=== PATIENT | female | born 1960 | race Caucasian/White ===

== ENCOUNTER 2024-02-29 01:19 | Inpatient (IN) | payer BC, OTHER ==
[2024-02-29] MEDS ORDERED: ONDANSETRON 4 MG/2 ML VIAL ONE (02:34)
[2024-02-29] MEDS ORDERED: NA CHLORIDE 0.9% 1,000 ML ONE (02:35)
[2024-02-29] MEDS ORDERED: FENTANYL CITR 100 MCG/2 ML ONE (02:35)
[2024-02-29] MEDS ORDERED: PIPERACIL/TAZO 3.375 GM VIAL IV ONE (02:36)
[2024-02-29] MEDS ORDERED: NA CHLORIDE 0.9% 100 ML ONE (02:36)
[2024-02-29 02:45] LABS: Arterial Blood Carboxyhemoglob 0.9 % (0-1.5); Blood O2 Saturation 95.6 % (92-98.5)
[2024-02-29] MEDS ORDERED: ALBUTEROL 2.5 MG/3 ML NEB SOL ONE ×2 (02:58→03:22)
[2024-02-29] MEDS ORDERED: METHYLPREDNISOLONE 125 MG INJ ONE (02:58)
[2024-02-29 03:11] LABS: Hematocrit 37.6 % (36.0-45.0); Hemoglobin 12.6 g/dL (12.0-15.0); MCH 28.7 pg (27.0-35.0); MCHC 33.4 g/dL (32.0-36.0); MCV 85.9 fL (80-100); MPV 7.8 fL (7.6-11.3); Platelets 281 thou/uL (152-406); RBC Red Blood Cell Count 4.37 M/uL (3.86-4.86); Red Cell Distribution Width 14.8 % (12.1-15.2)
[2024-02-29 03:19] LABS: Albumin 2.4 g/dL (3.4-5.0); Albumin/Globulin Ratio 0.7 (1.1-1.8); Anion Gap 7.7 mEq/L (5.0-15.0); Bilirubin Indirect, Calculated 0.5 mg/dL (0.2-0.8); Bilirubin Total 2.5 mg/dL (0.2-1.0); Globulin 3.6 g/dL (2.3-3.5); Magnesium 1.6 mg/dL (1.6-2.4); Potassium 2.7 mEq/L (3.5-5.1); Troponin High Sensitivity 7.6 pg/mL (<58.9)
[2024-02-29 03:51] LABS: Band Neutrophils 19 % (0-1); Blood Morphology Comment NOT SEEN (NOT SEEN); Differential Total Cells Count 100; Lymphocytes 4 % (15-42); Metamyelocytes 1 % (0-0); Monocytes 2 % (0-10); Platelet Estimate ADEQ; Segmented Neutrophils 74 % (40-80)
[2024-02-29 04:37] LABS: Renal Epithelial <5 /HPF (None Seen); Specific Gravity 1.027 (1.005-1.030); Sqamous Epithelial <5 /HPF (None Seen); Urine Bacteria None Seen /HPF (<20); Urine Bilirubin NEGATIVE (Negative); Urine Blood 1+ (Negative); Urine Clarity Clear (Clear); Urine Color Yellow (Yellow); Urine Culture Reflex Order REFLEXED; Urine Glucose NEGATIVE (Negative); Urine Ketones NEGATIVE (Negative); Urine Micro Reflex YN NO BILL MICROSCOPIC; Urine Mucus Slight /HPF (None Seen); Urine Nitrite NEGATIVE (Negative); Urine Protein TRACE (Negative); Urine RBC <5 /HPF (None Seen); Urine Urobilinogen Normal (Normal); Urine WBC Clump Rare /HPF (None Seen)
--- NOTE | 2024-02-29 05:22 | P.HP ---
Certification for Inpatient Patient admitted to: Observation With expected LOS: <2 Midnights Patient will require the following post-hospital care: None Practitioner: I am a practitioner with admitting privileges, knowledge of patient current condition, hospital course, and medical plan of care. Services: Services provided to patient in accordance with Admission requirements found in Title 42 Section 412.3 of the Code of Federal Regulations Patient History Date of Service: 02/29/24 Reason for admission: Right flank pain History of Present Illness: 61-year-old female with history of hypertension, pulmonary fibrosis secondary to COVID, on home oxygen 3 L/min use presented because she developed onset of right flank pain. Symptoms since the last 3 days but appear to be worsening, symptoms worse with movement. She denies any dysuria. She admits to chills but denies any fever. She states she has an episode of cough 1 week ago that was treated with empirical steroids and now prednisone. Her COVID screen then was negative. She presented today because of a worsening back pain. On arrival in the ED she was afebrile, vital signs stable, laboratory workup shows elevated WBC of 18,000 with 90% bands, BMP shows potassium of 2.7, creatinine of 0.8, normal lactic acid of 1.7, liver enzymes markedly elevated, lipase 147, total bili of 2.5. CT abdomen and pelvis reviewed by me, findings of right hydronephrosis, official reading pending. Patient be admitted for presumed right hydronephrosis with pyelonephritis - Past Medical/Surgical History -: Pulmonary fibrosis -: Chronic home O2 use - Social History Smoking Status: Never smoker Smoking therapy provided: No Patient receptive to therapy: No Alcohol use: No CD- Drugs: No Caffeine use: Yes Place of Residence: Home Review of Systems General: Chills, Weakness, Malaise Musculoskeletal: Back Pain Physical Examination - Physical Exam General: Alert, In no apparent distress, Oriented x3, Cooperative HEENT: Atraumatic, Normocephalic, PERRLA Neck: 2+ carotid pulse no bruit, JVD not distended Respiratory: Clear to auscultation bilaterally, Normal air movement, Other (On home O2) Cardiovascular: Normal pulses, Regular rate/rhythm, Normal S1 S2 Gastrointestinal: Normal bowel sounds, Soft and benign, Non-distended, No ascites, No tenderness Musculoskeletal: No clubbing, No swelling Integumentary: No breakdown, No significant lesion, No tenderness/swelling Neurological: Normal speech, Normal strength at 5/5 x4 extr, Sensation intact, Cranial nerves 3-12 intact Urinary: Renee catheter, Other (Right CVA tenderness) - Studies Laboratory Data (last 24 hrs) 02/29/24 02/29/24 02:00 02:00 WBC 18.10 H Hgb 12.6 Hct 37.6 Plt Count 281 Sodium 143 Potassium 2.7 L BUN 18 Creatinine 0.89 Glucose 110 H Magnesium 1.6 Total Bilirubin 2.5 H AST 332 H ALT 202 H Alkaline Phosphatase 268 H Lipase 147 H Assessment and Plan - Problems (Diagnosis) (1) Hydronephrosis, right Current Visit: Yes Status: Acute (2) Pyelonephritis Current Visit: Yes Status: Acute (3) Elevated LFTs Current Visit: Yes Status: Acute - Plan Impression and plan Acute UTI with pyelonephritisstart empirical antibiotics with Levaquin Follow urine culture Continue started Renee Follow urology for associated right hydronephrosis Right hydronephrosisurology consult today Might need cystoscopy with right stent in, follow CT abdomen and pelvics reading Elevated LFTsunclear etiology, follow full CT reading, might need right upper abdominal ultrasound May need GI evaluation Chronic home O2 use/history of pulmonary fibrosiscontinue home O2 DVT prophylaxissubcutaneous Lovenox Full code Total time spent evaluation discussion with ER physician and review of images greater than 70 minutes - Advance Directives Does patient have a Living Will: No Does patient have a Durable POA for Healthcare: No
[2024-02-29] MEDS ORDERED: MORPHINE 2 MG/ML SYR IV PRN (05:27)
[2024-02-29] MEDS ORDERED: HYDRALAZINE HCL 20 MG/ML VIAL IV PRN (05:29)
[2024-02-29 05:40] LABS: SARS-CoV-2 Antigen CONTROL BLUE LINE VIS/BG OK; SARS-CoV-2 Antigen Rapid Res Negative (Negative)
--- NOTE | 2024-02-29 05:58 | EDPHYS ---
Physician Documentation [facility] Name: Karlene Salgado Age: 63 yrs Sex: Female : 1960 Arrival Date: 02/29/2024 Time: 01:19 Bed 5 Private MD: ED Physician Kye Navarrete HPI: 02/28 01:21 This 63 yrs old Female presents to ER via Unassigned with complaints of Back sp4 Pain, Nausea/Vomiting. 05:42 63 -year-old female with history of pulmonary fibrosis secondary to prior COVID on the sp4 lung transplant list at [facility]. Patient presents with acute generalized weakness associated with nausea vomiting and bilateral back and chest pain. . Historical: - Allergies: 01:46 Hydrocodone-Acetaminophen; rg5 - Home Meds: 01:46 Zoloft 25 mg Oral tablet [Active]; levothyroxine 100 mcg tablet [Active]; Ofev 100 mg rg5 oral capsule [Active]; Xanax 2 mg Oral tablet [Active]; potassium chloride 10 mEq Oral Packet [Active]; Trelegy Ellipta 100-62.5-25 mcg inhalation Blister, With Inhalation Device [Active]; - Immunization history:: Adult Immunizations up to date. - Infectious Disease History:: Denies. - Social history:: Patient/guardian denies using Smoking status: Patient denies any tobacco usage or history of. - Family history:: not pertinent. ROS: 05:42 Constitutional: Negative for fever, chills, and weight loss, positive generalized sp4 weakness, back pain, nausea or vomiting flank pain on the right side 05:42 All other systems are negative, Exam: 05:42 Constitutional: This is a well developed, well nourished patient who is awake, alert, sp4 ill-appearing but nontoxic Head/Face: Normocephalic, atraumatic. Eyes: Pupils equal round and reactive to light, extra-ocular motions intact. Lids and lashes normal. Conjunctiva and sclera are not injected. Cornea within normal limits. Periorbital areas with no swelling, redness, or edema. ENT: Nares patent. No nasal discharge, no septal abnormalities noted. Tympanic membranes are normal and external auditory canals are clear. Oropharynx with no redness, swelling, or masses, exudates, or evidence of obstruction, uvula midline. Mucous membranes moist. Neck: Trachea midline, no thyromegaly or masses palpated, and no cervical lymphadenopathy. Supple, full range of motion without nuchal rigidity, or vertebral point tenderness. Chest/axilla: Normal chest wall appearance and motion. Nontender with no deformity. No lesions are appreciated. Cardiovascular: Regular rate and rhythm with a normal S1 and S2. No gallops, murmurs, or rubs. Normal PMI, no JVD. No pulse deficits. Respiratory: Lungs have equal breath sounds bilaterally, clear to auscultation and percussion. No rales, rhonchi or wheezes noted. No increased work of breathing, no retractions or nasal flaring. Abdomen/GI: Soft, with normal bowel sounds. No distension or tympany. No guarding or rebound. No evidence of tenderness throughout. Back: No spinal tenderness. No costovertebral tenderness. Skin: Warm, dry with normal turgor. Normal color with no rashes, no lesions, and no evidence of cellulitis. MS/ Extremity: Pulses equal, no cyanosis. Neurovascular intact. Full, normal range of motion. Neuro: Awake and alert, GCS 15, oriented to person, place, time, and situation. Cranial nerves II-XII grossly intact. Motor strength 5/5 in all extremities. Sensory grossly intact. Psych: Awake, alert, with orientation to person, place and time. Behavior, mood, and affect are within normal limits 05:42 ECG was reviewed by the Attending Physician. EKG at 0 316, normal sinus rhythm at the rate of 89. Vital Signs: 01:38 BP 147 / 62; Pulse 86; Resp 18; Temp 98.5; Pulse Ox 94% on 4 lpm NC; Weight 86.18 kg; rg5 Height 5 ft. 6 in. ; Pain 8/10; 02:03 BP 147 / 62; Pulse 86; Resp 18; Temp 98.5; Pulse Ox 94% on 4 lpm NC; Pain 8/10; rg5 04:23 BP 104 / 52; Pulse 86; Resp 19; Temp 98; Pulse Ox 99% on 4 lpm NC; Pain 3/10; rg5 05:46 BP 106 / 59; Pulse 79; Resp 18; Temp 98; Pulse Ox 96% on 4 lpm NC; Pain 1/10; rg5 01:38 Body Mass Index 30.67 (86.18 kg, 167.64 cm) rg5 01:38 Pain Scale: Adult rg5 02:03 Pain Scale: Adult rg5 04:23 Pain Scale: Adult rg5 05:46 Pain Scale: Adult rg5 Asael Coma Score: 04:15 Eye Response: spontaneous(4). Motor Response: obeys commands(6). Verbal Response: rg5 oriented(5). Total: 15. 05:42 Eye Response: spontaneous(4). Motor Response: obeys commands(6). Verbal Response: sp4 oriented(5). Total: 15. MDM: 01:39 Patient medically screened. sp4 04:52 ED course: CT - CLINICAL HISTORY: CHEST PAIN This exam was performed according to our sp4 departmental dose-optimization program, which includes automated exposure control, adjustment of the mA and/or kV according to patient size and/or use of iterative reconstruction technique. FINDINGS: Vascular: Thoracic aorta is normal in course and caliber without aneurysm or dissection. Pulmonary arteries are adequately opacified without acute or chronic filling defects. Abdominal aorta is normal in course and caliber without aneurysm. Pelvic arteries are patent without aneurysm or occlusion. Chest: The heart is normal in size. There is no pericardial effusion. Intrathoracic lymph nodes are not enlarged. There is mild right hydronephrosis secondary to a distal right ureteral calculus measuring 5 mm. Central airways are patent. There is extensive scarring and mild bronchiectasis throughout both lungs. Abdomen: The liver is normal in appearance. There is no biliary dilatation. Gallbladder contains tiny layering gallstones. The pancreas and spleen are normal in appearance. Adrenal glands are normal. Left kidney is unremarkable. There is a cystic lesion involving the upper pole of the right kidney measuring 3.8 cm. This is not convincingly a simple cyst. There is no free air. There is no retroperitoneal adenopathy. Pelvis: There is no bowel obstruction. Urinary bladder is unremarkable. There is no free fluid. Appendix is normal. Hysterectomy was performed. Skeleton: There is a mild upper endplate T11 compression fracture, age indeterminate. IMPRESSION: No aortic dissection or aneurysm. No pulmonary embolus. Mildly obstructing 5 mm distal right ureteral calculus. Indeterminate right renal lesion. Recommend ultrasound. Electronically signed by: Lance Meza MD 02/29/2024 04:46 AM . 06:09 Differential diagnosis: Cholelithiasis Osteoarthritis Pyelonephritis Renal Infarction. sp4 Data reviewed: vital signs, nurses notes. Consideration of Admission/Observation Patient was admitted/placed on observation. Escalation of care including admission/observation considered. Management of patient was discussed with the following: Hospitalist: Wilmer STOCKTON . Repairer Auto Clocks: Lefty STOCKTON . ED course: Patient warrants admission secondary to severe pain associated with a right ureteral calculus. There is mildly obstructing 5 mm right ureteral calculus. . 06:09 ED course: Urology Dr. Olea consulted for evaluation in the hospital.. sp4 02/28 01:37 Order name: BMP; Complete Time: 04:51 sp4 02/28 01:37 Order name: Blood Culture Adult (2) 4 02/28 01:37 Order name: CBC with Diff; Complete Time: 04:51 sp4 02/28 01:37 Order name: CPK; Complete Time: 04:51 sp4 02/28 01:37 Order name: Hepatic Function; Complete Time: 04:51 sp4 02/28 01:37 Order name: Lipase; Complete Time: 04:51 sp4 02/28 01:37 Order name: Magnesium; Complete Time: 04:51 sp4 02/28 01:37 Order name: NT PRO-BNP; Complete Time: 04:51 sp4 02/28 01:37 Order name: PT-INR 4 02/28 01:37 Order name: Ptt, Activated 4 02/28 01:37 Order name: Troponin HS; Complete Time: 04:51 sp4 02/28 01:37 Order name: ABG; Complete Time: 04:51 sp4 02/28 01:38 Order name: CRP; Complete Time: 04:51 sp4 02/28 01:38 Order name: Urinalysis W/Microscopic; Complete Time: 04:51 sp4 02/28 01:39 Order name: Lactate w/ 2H reflex if indic.; Complete Time: 04:51 sp4 02/28 03:15 Order name: Manual Differential; Complete Time: 04:51 EDMS 02/28 04:51 Order name: Urine Culture EDMS 02/28 04:51 Order name: SARS RAPID; Complete Time: 05:41 sp4 02/28 04:51 Order name: Influenza Screen (a \T\ B) sp4 02/28 05:31 Order name: CBC with Automated Diff EDMS 02/28 05:31 Order name: CBC with Automated Diff EDMS 02/28 05:31 Order name: Comprehensive Metabolic Panel EDNM 02/28 05:31 Order name: Comprehensive Metabolic Panel EDNM 02/28 05:32 Order name: Potassium EDMS 02/28 01:37 Order name: CT Chest, Abdomen, Pelvis - W/Contrast sp4 02/28 01:37 Order name: Call RT; Complete Time: 03:08 sp4 02/28 01:37 Order name: EKG; Complete Time: 01:38 sp4 02/28 05:31 Order name: CONS Physician Consult EDNM 02/28 01:37 Order name: Cardiac monitoring; Complete Time: 03:08 sp4 02/28 01:37 Order name: EKG - Nurse/Tech; Complete Time: 03:09 sp4 02/28 01:37 Order name: IV Saline Lock; Complete Time: 03:08 sp4 02/28 01:37 Order name: Labs collected and sent; Complete Time: 03:09 sp4 02/28 01:37 Order name: O2 Per Protocol; Complete Time: 03:09 sp4 02/28 01:37 Order name: O2 Sat Monitoring; Complete Time: 03:09 sp4 02/28 01:38 Order name: Renee; Complete Time: 04:07 sp4 EC:42 Rate is 89 beats/min. Rhythm is regular, Normal Sinus Rhythm. QRS [place] is Normal. [place] sp4 interval is normal. QRS interval is normal. QT interval is normal. No Q waves. T waves are Inverted in leads III, aVF, V3, V4, V5, V6. No ST changes noted. Interpreted by me. Reviewed by me. Administered Medications: 03:07 Drug: fentaNYL (PF) IVP 50 mcg IVP once Route: IVP; Site: left antecubital; rg5 04:26 Follow up: Response: No adverse reaction rg5 03:07 Drug: Ondansetron IVP 4 mg IVP once; over 2 minutes Route: IVP; Site: left antecubital; rg5 04:26 Follow up: Response: No adverse reaction rg5 03:07 Drug: NS 0.9% IV 1000 ml IV at 125 ml/hr continuous Route: IV; Rate: 125 ml/hr; Site: rg5 left antecubital; 03:08 Drug: Albuterol Inhalation 2.5 mg Inhalation every 20 minutes x3 Route: Inhalation; rg5 03:08 Drug: MethylPrednisoLONE IVP 125 mg IVP once Route: IVP; Site: left antecubital; rg5 04:27 Follow up: Response: No adverse reaction rg5 03:08 Drug: Piperacillin-Tazobactam IVPB 3.375 grams IVPB once over 60 mins; (mix in NS 100 rg5 mL) Route: IVPB; Infused Over: 60 mins; Site: left antecubital; 04:26 Follow up: Response: No adverse reaction rg5 04:27 Drug: Albuterol Inhalation 2.5 mg Inhalation every 20 minutes x3 Route: Inhalation; rg5 04:28 Drug: Albuterol Inhalation 2.5 mg Inhalation every 20 minutes x3 Route: Inhalation; rg5 04:28 Follow up: Response: No adverse reaction rg5 Disposition Summary: 02/29/24 05:57 Hospitalization Ordered Notes: Hospitalization Status: Observation sp4 Provider: Wilmer Raines sp4 [facility] sp[facility] Condition: Stable sp4 Problem: new sp4 Symptoms: have improved sp4 Bed/Room Type: Standard sp4 Room Assignment: 217(02/29/24 06:20) lg3 Diagnosis - Acute right ureteral calculus with right hydronephrosis, right flank pain, nausea sp4 vomiting, leukocytosis secondary to steroids, bronchiectasis Discharge Instructions: - Discharge Summary Sheet lg3 Forms: - SBAR form lg3 - Medication Reconciliation Form sp4 - Leadership Thank You Letter sp4 Signatures: Dispatcher [employer] Rebecca Scott RN RN lg3 Kye Navarrete MD MD sp4 Prudencio Catalan RN RN rg5 Corrections: (The following items were deleted from the chart) 01:39 01:38 BASIC METABOLIC PANEL+C.LAB.BRZ ordered. EDMS EDMS 01:39 01:38 BLOOD CULTURE*+BA.LAB.BRZ ordered. EDMS EDMS 01:39 01:38 CBC+H.LAB.BRZ ordered. EDMS EDMS 01:39 01:38 CREATINE PHOSPHOKINASE+C.LAB.BRZ ordered. EDMS EDMS 01:39 01:38 HEPATIC FUNCTION+C.LAB.BRZ ordered. EDMS EDMS 01:39 01:38 LIPASE+C.LAB.BRZ ordered. EDMS EDMS 01:39 01:38 MAGNESIUM+C.LAB.BRZ ordered. EDMS EDMS 01:39 01:38 PROBNP+C.LAB.BRZ ordered. EDMS EDMS 01:39 01:38 PROTIME (+INR)+COAG.LAB.BRZ ordered. EDMS EDMS 01:39 01:38 PTT, ACTIVATED+COAG.LAB.BRZ ordered. EDMS EDMS 01:39 01:38 Troponin High Sensitivity+C.LAB.BRZ ordered. EDMS EDMS 06:20 05:57 sp4 lg3
--- NOTE | 2024-02-29 05:58 | ER ---
Nurse's Notes [facility] Name: Karlene Salgado Age: 63 yrs Sex: Female : 1960 Arrival Date: 02/29/2024 Time: 01:19 Bed 5 Private MD: Diagnosis: Acute right ureteral calculus with right hydronephrosis, right flank pain, nausea vomiting, leukocytosis secondary to steroids, bronchiectasis Presentation: 02/28 01:38 Chief complaint: Patient states: feels sick since yesterday, has pain on right flank rg5 radiating to the back and having nausea \T\ vomiting. Coronavirus screen: Client denies travel out of the [place] in the last 14 days. Ebola Screen: Patient denies travel to an Ebola-affected area in the 21 days before illness onset. Initial Sepsis Screen: Does the patient meet any 2 criteria? No. Patient's initial sepsis screen is negative. Initial Sepsis Screen: Does the patient have a suspected source of infection? No. Patient's initial sepsis screen is negative. Risk Assessment: Do you want to hurt yourself or someone else? Patient reports no desire to harm self or others. Onset of symptoms was February 29, 2024. Care prior to arrival: Medication(s) given: zofran 4 mg, morphine 4mg. 01:38 Method Of Arrival: EMS: [facility] 5 01:38 Acuity: JEREMIAH 3 rg5 Triage Assessment: 01:46 General: Appears uncomfortable, Behavior is appropriate for age, restless. Pain: rg5 Complains of pain in abdomen Pain currently is 8 out of 10 on a pain scale. Quality of pain is described as aching, radiating. Neuro: Level of Consciousness is awake, alert, obeys commands. Cardiovascular: Capillary refill < 3 seconds. Respiratory: Reports shortness of breath at rest. GI: Abdomen is round non-distended, Pt is actively vomiting Reports nausea. : No signs and/or symptoms were reported regarding the genitourinary system. Derm: Skin is intact, Skin is dry, Skin is pink, warm \T\ dry. Musculoskeletal: Range of motion: intact in all extremities. Historical: - Allergies: 01:46 Hydrocodone-Acetaminophen; rg5 - Home Meds: 01:46 Zoloft 25 mg Oral tablet [Active]; levothyroxine 100 mcg tablet [Active]; Ofev 100 mg rg5 oral capsule [Active]; Xanax 2 mg Oral tablet [Active]; potassium chloride 10 mEq Oral Packet [Active]; Trelegy Ellipta 100-62.5-25 mcg inhalation Blister, With Inhalation Device [Active]; - Immunization history:: Adult Immunizations up to date. - Infectious Disease History:: Denies. - Social history:: Patient/guardian denies using Smoking status: Patient denies any tobacco usage or history of. - Family history:: not pertinent. Screenin:15 [facility] ED Fall Risk Assessment (Adult) History of falling in the last 3 months, rg5 including since admission No falls in past 3 months (0 pts) Confusion or Disorientation No (0 pts) Intoxicated or Sedated No (0 pts) Impaired Gait No (0 pts) Mobility Assist Device Used No (0 pt) Altered Elimination No (0 pt) Score/Fall Risk Level 0 - 2 = Low Risk. Abuse screen: Denies threats or abuse. Nutritional screening: No deficits noted. Tuberculosis screening: No symptoms or risk factors identified. Assessment: 04:15 General: Appears comfortable, Behavior is calm, cooperative, appropriate for age, rg5 quiet. Neuro: Level of Consciousness is awake, alert, obeys commands, Oriented to person, place, time, situation, Appropriate for age. Cardiovascular: Rhythm is sinus rhythm. Respiratory: Airway is patent. GI: Abd is soft and non tender X 4 quads. : No signs and/or symptoms were reported regarding the genitourinary system. Derm: Skin is intact, Skin is dry, Skin is pink, warm \T\ dry. Skin temperature is warm. Musculoskeletal: Capillary refill < 3 seconds, Range of motion: intact in all extremities. 05:50 Reassessment: Patient and/or family updated on plan of care and expected duration. Pain rg5 level reassessed. Patient is alert, oriented x 3, equal unlabored respirations, skin warm/dry/pink. Patient states feeling better. Patient states symptoms have improved. Vital Signs: 01:38 BP 147 / 62; Pulse 86; Resp 18; Temp 98.5; Pulse Ox 94% on 4 lpm NC; Weight 86.18 kg; rg5 Height 5 ft. 6 in. ; Pain 8/10; 02:03 BP 147 / 62; Pulse 86; Resp 18; Temp 98.5; Pulse Ox 94% on 4 lpm NC; Pain 8/10; rg5 04:23 BP 104 / 52; Pulse 86; Resp 19; Temp 98; Pulse Ox 99% on 4 lpm NC; Pain 3/10; rg5 05:46 BP 106 / 59; Pulse 79; Resp 18; Temp 98; Pulse Ox 96% on 4 lpm NC; Pain 1/10; rg5 01:38 Body Mass Index 30.67 (86.18 kg, 167.64 cm) rg5 01:38 Pain Scale: Adult rg5 02:03 Pain Scale: Adult rg5 04:23 Pain Scale: Adult rg5 05:46 Pain Scale: Adult rg5 Vitals: 04:15 Cardiac Rhythm Assessment Regular Sinus rhythm. rg5 Asael Coma Score: 04:15 Eye Response: spontaneous(4). Motor Response: obeys commands(6). Verbal Response: rg5 oriented(5). Total: 15. 05:42 Eye Response: spontaneous(4). Motor Response: obeys commands(6). Verbal Response: sp4 oriented(5). Total: 15. ED Course: 01:19 Patient arrived in ED. jj6 01:21 Kye Navarrete MD is Attending Physician. sp4 01:37 Prudencio Catalan, DWAYNE is Primary Nurse. rg5 01:46 Triage completed. rg5 03:37 CT Chest, Abdomen, Pelvis - W/Contrast In Process Unspecified. EDMS 04:00 Renee cath inserted, using sterile technique, 16 Fr., by mt, balloon inflated, returned rg5 clear yellow urine. Patient tolerated well. 04:07 Urinalysis W/Microscopic Sent. vk 04:15 Maintain EMS IV. Dressing intact. Good blood return noted. Site clean \T\ dry. Gauge \T\ rg 5 site: 20 g left AC. 04:15 Patient has correct armband on for positive identification. Placed in gown. Bed in low rg5 position. Call light in reach. Side rails up X2. Adult w/ patient. Provided Education on:. 05:46 Arm band placed on left wrist. rg5 05:57 Wilmer Raines MD is Hospitalizing Provider. sp4 06:25 No provider procedures requiring assistance completed. intact. rg5 Administered Medications: 03:07 Drug: fentaNYL (PF) IVP 50 mcg IVP once Route: IVP; Site: left antecubital; rg5 04:26 Follow up: Response: No adverse reaction rg5 03:07 Drug: Ondansetron IVP 4 mg IVP once; over 2 minutes Route: IVP; Site: left antecubital; rg5 04:26 Follow up: Response: No adverse reaction rg5 03:07 Drug: NS 0.9% IV 1000 ml IV at 125 ml/hr continuous Route: IV; Rate: 125 ml/hr; Site: rg5 left antecubital; 03:08 Drug: Albuterol Inhalation 2.5 mg Inhalation every 20 minutes x3 Route: Inhalation; rg5 03:08 Drug: MethylPrednisoLONE IVP 125 mg IVP once Route: IVP; Site: left antecubital; rg5 04:27 Follow up: Response: No adverse reaction rg5 03:08 Drug: Piperacillin-Tazobactam IVPB 3.375 grams IVPB once over 60 mins; (mix in NS 100 rg5 mL) Route: IVPB; Infused Over: 60 mins; Site: left antecubital; 04:26 Follow up: Response: No adverse reaction rg5 04:27 Drug: Albuterol Inhalation 2.5 mg Inhalation every 20 minutes x3 Route: Inhalation; rg5 04:28 Drug: Albuterol Inhalation 2.5 mg Inhalation every 20 minutes x3 Route: Inhalation; rg5 04:28 Follow up: Response: No adverse reaction rg5 Medication: 04:15 VIS not applicable for this client. rg5 Outcome: 05:57 Decision to Hospitalize by Provider. sp4 06:43 Admitted to Med/surg accompanied by nurse, family with patient, via stretcher, with rg5 oxygen, with chart, 06:43 Condition: improved 06:43 Demonstrated understanding of call before getting out of bed 06:45 Patient left the ED. rg5 Signatures: Dispatcher [employer] EDAlisha Araiza Sergey, MD MD sp4 Charlotte Rojas Rommel, RN RN rg5
[2024-02-29] MEDS ORDERED: D5 0.9 NS 1,000 ML IV SCH (06:00)
[2024-02-29] MEDS: MORPHINE 4 MG/ML SYR IV PRN (08:07)
[2024-02-29] MEDS: Ringers Lactate 1,000 ML IV SCH (08:13)
[2024-02-29] MEDS: POTASSIUM 25 MEQ EFFERV TAB PO ONE (08:14)
[2024-02-29] MEDS: ENOXAPARIN 40 MG/0.4 ML SQ SCH (08:15)
[2024-02-29] MEDS: Magnesium Sulfate 2gm IVPB 2 G/50 ML BAG IV ONE (09:29)
[2024-02-29] MEDS: CEFEPIME 1 GM in NA CHLORIDE 0.9% 100 ML IV SCH (09:32)
[2024-02-29] MEDS: POTASSIUM CL SA 10 MEQ TAB PO SCH (11:12)
--- NOTE | 2024-02-29 11:14 | P.PN ---
Date of Service: 02/29/24 Pt seen and examined. Pt is a 63yo female with past medical history of hypertension, pulmonary fibrosis secondary to COVID, on home oxygen 3 L/min use presented with right flank pain. A/P: Acute UTI with pyelonephritis: Will continue iv abx and f/u urine cx. CT abd shows right hydronephrosis. Consulted Urology. Right hydronephrosis: COnsulted Urology. Might need cystoscopy with right stent in, follow CT abdomen and pelvics reading Elevated LFTs: Will f/u liver ultrasound. Will trend LFT. History of pulmonary fibrosis: Continue home O2 DVT ppx: Lovenox Code: Full code
[2024-02-29 11:46] LABS: PT Prothrombin Time 12.7 SECONDS (9.4-12.5); PTT, Activated Partial Thromb 26.5 SECONDS (24.3-36.9); Protime INR 1.16
--- NOTE | 2024-02-29 13:27 | RAD REPORT ---
EXAM DESCRIPTION: CT - Chest Abdomen Pelvis W Cont - 02/29/2024 6:58 am CLINICAL HISTORY: CHEST PAIN COMPARISON: None. TECHNIQUE: CT CHEST ABDOMEN PELVIS WITH IV CONTRAST on 02/29/2024 1:37 AM CDT. MIPS reconstructions w ere generated. This exam was performed according to our departmental dose-optimization program, which includes autom ated exposure control, adjustment of the mA and/or kV according to patient size and/or use of iterati ve reconstruction technique. FINDINGS: Vascular: Thoracic aorta is normal in course and caliber without aneurysm or dissection. P ulmonary arteries are adequately opacified without acute or chronic filling defects. Abdominal aorta is normal in course and caliber without aneurysm. Pelvic arteries are patent without aneurysm or occl usion. Chest: The heart is normal in size. There is no pericardial effusion. Intrathoracic lymph nodes are n ot enlarged. There is mild right hydronephrosis secondary to a distal right ureteral calculus measuring 5 mm. Cent ral airways are patent. There is extensive scarring and mild bronchiectasis throughout both lungs. Abdomen: The liver is normal in appearance. There is no biliary dilatation. Gallbladder contains tiny layering gallstones. The pancreas and spleen are normal in appearance. Adrenal glands are normal. Le ft kidney is unremarkable. There is a cystic lesion involving the upper pole of the right kidney mona uring 3.8 cm. This is not convincingly a simple cyst. There is no free air. There is no retroperitoneal adenopathy. Pelvis: There is no bowel obstruction. Urinary bladder is unremarkable. There is no free fluid. Appen cisco is normal. Hysterectomy was performed. Skeleton: There is a mild upper endplate T11 compression fracture, age indeterminate. IMPRESSION: No aortic dissection or aneurysm. No pulmonary embolus. Mildly obstructing 5 mm distal right ureteral calculus. Indeterminate right renal lesion. Recommend ultrasound. Electronically signed by: Lance Meza MD 02/29/2024 04:46 AM CDT Due to temporary technical issues with the PACS/Fluency reporting system, reports are being signed by the in house radiologist without review as a courtesy to ensure prompt reporting. The interpreting r adiologist is fully responsible for the content of the report.
[2024-02-29 14:34] VITALS: BMI 30.7
[2024-02-29] MEDS: IPRATROPIUM BROM 0.5MG/2.5ML IH PRN (16:45)
[2024-02-29] MEDS: ALBUTEROL 2.5 MG/3 ML NEB SOL NEB PRN (16:45)
--- NOTE | 2024-02-29 19:12 | P.CNS ---
Date of Consult: 02/29/24 Reason for Consult: Obstructive ureterolithiasis Chief Complaint: Right flank pain History of Present Illness: 63-year-old woman with hypertension and pulmonary fibrosis secondary to COVID requiring 3 L/min home O2 presented to the emergency department earlier this morning with severe right flank pain. She has been experiencing this pain intermittently, but to a lesser degree, over the last month, but that day it was more severe. She also had some increased dyspnea associated with the pain, which is part of what brought her in. About a week ago, she also had a fever to 100.8 despite use of Tylenol; so they saw her lockstitch binder who gave her Augmentin, presuming it was potentially a pneumonia. She has not had any fevers since then. She denied any nausea or vomiting. 2 days ago, the pain started again in the right flank and became severe enough to bring her in. Past medical history as above Social history noncontributory Examination: Patient reasonably well-appearing in no acute distress Mild dyspnea at rest with nasal cannula oxygen applied Lying in hospital bed 02/29/2024 WBC 18.1, hemoglobin 12.6, platelets 281, INR 1.16, creatinine 0.89, potassium 2.7, LFTs increased, proBNP elevated ABG 7.47/34.5/80.6/25.1/96% on nasal cannula O2 02/29/2024 CT chest abdomen and pelvis with IV contrast performed impression by radiologist: No aortic dissection or aneurysm. No pulmonary embolus. Mildly obstructing 5 mm distal right ureteral calculus. Indeterminate right renal lesion. Recommend ultrasound. Findings: There is a cystic lesion involving the upper pole of the right kidney measuring 3.8 cm. This is not convincingly a simple cyst. My review of the imaging: Moderate pelvocaliectasis and ureteral nephrosis associated with an obstructing right distal ureteral stone. Complex 4 cm right cystic renal lesion with septations that were questionably enhancing involving the upper mid pole laterally Assessment and recommendation: 63-year-old woman with hypertension and pulmonary fibrosis secondary to COVID requiring 3 L/min home O2 with obstructive right distal ureterolithiasis and associated moderate right hydronephrosis and flank pain. -I counseled the patient along with her family extensively over the course of more than 45 minutes initially and then an additional 15 minutes after consulting with Dr. Wilhelm, chief anesthesiologist, about her situation. I explained that she had 2 options as follows: 1. She could attempt to pass the stone as it had a 50% chance of successful spontaneous passage, but this could take potentially another couple of weeks, and she has at least [address] during the passage where the stone is likely to become significantly obstructed, at the UVJ, and result in severe additional pain before the stone passes. I explained there was no guarantee that she would be able to pass the stone, and the risk was that given her respiratory scenario, should she have increased work of breathing, that could result in added stress and decompensation of her heart that could result in an AMI or potentially respiratory failure. She explained she is being evaluated for pulmonary transplantation and has 30% residual lung function. She underwent a colonoscopy under some sort of sedation recently and tolerated that well per the patient. 2. We would place a right ureteral stent, and we would plan to do this under mild to moderate sedation only, avoiding any deep sedative that could result in need for intubation. We discussed that while that might be the plan, there was no guarantee that she might not have further decompensation that could require placement of a endotracheal tube and mechanical ventilation, and should that occur, it may be difficult to extubate her. She was concerned about that possibility, but both I and Dr. Wilhelm reassured her that the plan would be for a degree of local anesthesia plus sedation if she selected that methodology of management of her stone. I further explained that if we were to place the stent, this would relieve the colicky pain associated with the calculus related obstruction, but the stone within unlikely pass with the stent in place. I explained that less than 1% of cases in my experience had the stone passed with the stent in place. As a result, I explained she would subsequently require definitive surgical management of the stone via ureteroscopy with laser lithotripsy, and this would require more, likely general, anesthesia. I was careful to explain this would only be a subsequent surgical event and not a primary surgical event. I explained that that would not likely be done at this local hospital and would more likely need to be done in the [facility]. I explained how the stent would be placed in detail and the purpose of the stent as well as the risk of stent discomfort in detail. I further explained the about 5% risk of inability to place the stent and need for percutaneous nephrostomy tube to be placed. As a result, I referenced option #3 as follows: 3. Undergo percutaneous nephrostomy tube placement. I explained this would be done under local with sedation, likely similar to what we would plan for cystoscopy and ureteral stent placement. As a result, I did not see a significant benefit in that approach over stent attempt. She also would prefer not to have a nephrostomy tube. -Despite all of that discussion, the patient remains significantly ambivalent. She had placed a call into her regular lockstitch binder to seek some additional advice. I explained that since she ate a [employer] bar at around 330/4 PM, we would be unable to proceed for likely 6 hours, and we would not prefer to do a procedure with her inherent risks at that time of night with limited staff availability in the hospital. As a result, if we were to do it, it would need to be during the light of day tomorrow, and I have my only availability at 7 AM. She wished to speak with her and family about this, and I asked them to let me know 1 [address] or other via the nurse tonight so that we can prepare accordingly if necessary for tomorrow. Allergies hydrocodone Adverse Reaction (Verified 02/29/24 07:52) Nausea/Vomiting Home medications list reviewed: Yes Home Medications: ALPRAZolam [Xanax] 2 mg PO DAILY 02/29/24 Ascorbic Acid [Vitamin C] 1,000 mg PO DAILY 02/29/24 Atorvastatin Calcium 40 mg PO BEDTIME 02/29/24 Cholecalciferol (Vitamin D3) [Vitamin D3] 1,000 unit PO BEDTIME 02/29/24 Diltiazem HCl [Diltiazem ER] 180 mg PO BEDTIME 02/29/24 Fluticasone/Umeclidin/Vilanter [Trelegy Ellipta 100-62.5-25] 1 each IH DAILY 02/29/24 Ipratropium Neb [Atrovent Neb] 0.2 mg IH Q6HP PRN 02/29/24 Lactobacillus Combo No.10 [Probiotic] 1 each PO BEDTIME 02/29/24 Levothyroxine [Synthroid] 88 mcg PO [id number] 02/29/24 Melatonin [Melatonin*] 10 mg PO BEDTIME 02/29/24 Mirtazapine [Remeron] 15 mg PO BEDTIME 02/29/24 Multivitamin [Multiple Vitamins] 1 each PO DAILY 02/29/24 Nintedanib Esylate [Ofev] 100 mg PO BID 02/29/24 Sertraline [Zoloft] 150 mg PO DAILY 02/29/24 - Past Medical/Surgical History Diabetic: No -: Pulmonary fibrosis -: Chronic home O2 use. awaiting lung transplant form COVID -: MRSA in 2001 -: osteoporosis -: hashimotos -: hysterectomy - Family History Father Medical History: Heart disease Mother Medical History: Heart disease Brother Medical History: Heart disease - Social History Alcohol use: No CD- Drugs: No Caffeine use: Yes Place of Residence: Home Physical Examination Temp Pulse Resp BP Pulse Ox 98.4 F 63 16 113/61 97 02/29/24 16:00 02/29/24 16:00 02/29/24 17:35 02/29/24 16:00 02/29/24 17:35 Laboratory Data (last 24 hrs) 02/29/24 02/29/24 02:00 02:00 WBC 18.10 H Hgb 12.6 Hct 37.6 Plt Count 281 Sodium 143 Potassium 2.7 L BUN 18 Creatinine 0.89 Glucose 110 H Magnesium 1.6 Total Bilirubin 2.5 H AST 332 H ALT 202 H Alkaline Phosphatase 268 H Lipase 147 H - Problems (1) Right flank pain Current Visit: Yes Status: Acute (2) Ureterolithiasis Current Visit: Yes Status: Acute (3) Pulmonary fibrosis Current Visit: Yes Status: Acute (4) Hypoxia Current Visit: Yes Status: Acute (5) Hydronephrosis, right Current Visit: Yes Status: Acute Conclusions/Impression: see A&P in HPI Critical Care: No Time Spent Managing Pts care (In Minutes): 75
[2024-02-29] MEDS: MELATONIN 5 MG TABLET PO SCH (21:00)
[2024-02-29] MEDS: ATORVASTATIN 40 MG TAB PO SCH (21:05)
[2024-02-29] MEDS: VITAMIN D 1000 UNIT TAB PO SCH (21:05)
[2024-02-29] MEDS: DILTIAZEM HCL 180 MG SR CAP PO SCH (21:06)
[2024-02-29] MEDS: MIRTAZAPINE 15 MG TAB PO SCH (21:07)
--- NOTE | 2024-02-29 22:12 | P.CNS ---
Date of Consult: 02/29/24 Reason for Consult: Pulmonary fibrosis Chief Complaint: Right flank pain History of Present Illness: Patient is 63 years of age admitted with the fever for the past 1 week right- sided back pain and was found to have renal calculi apparently she was also hypotensive hypokalemic abnormal LFTs on admission In addition patient has post-COVID pulmonary fibrosis and she is on a drug trial with possible Ofev. And is awaiting lung transplantation uses 3 and half liters of nasal cannula oxygen patient went to the emergency room or urgent care at [facility] and was treated with steroids and Augmentin continued to get worse she is followed up at [facility] transplant clinic Allergies hydrocodone Adverse Reaction (Verified 02/29/24 07:52) Nausea/Vomiting Home Medications: ALPRAZolam [Xanax] 2 mg PO DAILY 02/29/24 Ascorbic Acid [Vitamin C] 1,000 mg PO DAILY 02/29/24 Atorvastatin Calcium 40 mg PO BEDTIME 02/29/24 Cholecalciferol (Vitamin D3) [Vitamin D3] 1,000 unit PO BEDTIME 02/29/24 Diltiazem HCl [Diltiazem ER] 180 mg PO BEDTIME 02/29/24 Fluticasone/Umeclidin/Vilanter [Trelegy Ellipta 100-62.5-25] 1 each IH DAILY 02/29/24 Ipratropium Neb [Atrovent Neb] 0.2 mg IH Q6HP PRN 02/29/24 Lactobacillus Combo No.10 [Probiotic] 1 each PO BEDTIME 02/29/24 Levothyroxine [Synthroid] 88 mcg PO [id number] 02/29/24 Melatonin [Melatonin*] 10 mg PO BEDTIME 02/29/24 Mirtazapine [Remeron] 15 mg PO BEDTIME 02/29/24 Multivitamin [Multiple Vitamins] 1 each PO DAILY 02/29/24 Nintedanib Esylate [Ofev] 100 mg PO BID 02/29/24 Sertraline [Zoloft] 150 mg PO DAILY 02/29/24 - Past Medical/Surgical History Diabetic: No -: Pulmonary fibrosis -: Chronic home O2 use. awaiting lung transplant form COVID -: MRSA in 2001 -: osteoporosis -: hashimotos -: hysterectomy - Family History Father Medical History: Heart disease Mother Medical History: Heart disease Brother Medical History: Heart disease - Social History Alcohol use: No CD- Drugs: No Caffeine use: Yes Place of Residence: Home Review of Systems 10-point ROS is otherwise unremarkable General: Weakness Respiratory: Cough, Shortness of Breath Physical Examination Temp Pulse Resp BP Pulse Ox 98.4 F 63 16 113/61 97 02/29/24 16:00 02/29/24 16:00 02/29/24 18:05 02/29/24 16:00 02/29/24 18:05 General: Alert, In no apparent distress, Oriented x3 Respiratory: Crackles/rales (Crackles bilateral) Cardiovascular: No edema, Regular rate/rhythm, Normal S1 S2 Gastrointestinal: Normal bowel sounds, Soft and benign Musculoskeletal: No clubbing, No swelling, No contractures Laboratory Data (last 24 hrs) 02/29/24 02/29/24 02:00 02:00 WBC 18.10 H Hgb 12.6 Hct 37.6 Plt Count 281 Sodium 143 Potassium 2.7 L BUN 18 Creatinine 0.89 Glucose 110 H Magnesium 1.6 Total Bilirubin 2.5 H AST 332 H ALT 202 H Alkaline Phosphatase 268 H Lipase 147 H - Problems (1) Pulmonary fibrosis Current Visit: Yes Status: Acute Plan: Patient is 63 years of age admitted with renal calculi associated with back pain and some fever she was seen by urologist patient was hypotensive currently on IV fluids and cefepime of note patient has postinflammatory COVID induced pulmonary fibrosis and has been currently evaluated for lung transplant is on 3- 1/2 L of nasal cannula oxygen in addition to possible ofev abnormal LFTs/may be from sepsis or Ofev induced patient is on trilogy at home not taking any steroid s blood cultures are pending CT scan reviewed CT scan of the liver did not show any abnormalities patient does have some gallstone/seen by urology patient's discussed regarding treatment of her stone CT scan reportThere is mild right hydronephrosis secondary to a distal right ureteral calculus measuring 5 mm. Patient is currently stable oxygen saturation is 97% on 4 L with a pO2 of 80 and is currently stable for general anesthesia (2) Elevated LFTs Current Visit: Yes Status: Acute Plan: Abnormal LFTs may be a consequence of possible sepsis/hypotension or side effect of possible Ofev patient is currently on a trial not sure if she is taking the medication continue to monitor
--- NOTE | 2024-02-29 22:19 | P.CNS ---
Date of Consult: 02/29/24 Chief Complaint: Right flank pain Allergies hydrocodone Adverse Reaction (Verified 02/29/24 07:52) Nausea/Vomiting Home Medications: ALPRAZolam [Xanax] 2 mg PO DAILY 02/29/24 Ascorbic Acid [Vitamin C] 1,000 mg PO DAILY 02/29/24 Atorvastatin Calcium 40 mg PO BEDTIME 02/29/24 Cholecalciferol (Vitamin D3) [Vitamin D3] 1,000 unit PO BEDTIME 02/29/24 Diltiazem HCl [Diltiazem ER] 180 mg PO BEDTIME 02/29/24 Fluticasone/Umeclidin/Vilanter [Trelegy Ellipta 100-62.5-25] 1 each IH DAILY 02/29/24 Ipratropium Neb [Atrovent Neb] 0.2 mg IH Q6HP PRN 02/29/24 Lactobacillus Combo No.10 [Probiotic] 1 each PO BEDTIME 02/29/24 Levothyroxine [Synthroid] 88 mcg PO [id number] 02/29/24 Melatonin [Melatonin*] 10 mg PO BEDTIME 02/29/24 Mirtazapine [Remeron] 15 mg PO BEDTIME 02/29/24 Multivitamin [Multiple Vitamins] 1 each PO DAILY 02/29/24 Nintedanib Esylate [Ofev] 100 mg PO BID 02/29/24 Sertraline [Zoloft] 150 mg PO DAILY 02/29/24 - Past Medical/Surgical History Diabetic: No -: Pulmonary fibrosis -: Chronic home O2 use. awaiting lung transplant form COVID -: MRSA in 2001 -: osteoporosis -: hashimotos -: hysterectomy - Family History Father Medical History: Heart disease Mother Medical History: Heart disease Brother Medical History: Heart disease - Social History Alcohol use: No CD- Drugs: No Caffeine use: Yes Place of Residence: Home Physical Examination Temp Pulse Resp BP Pulse Ox 98.4 F 63 16 113/61 97 02/29/24 16:00 02/29/24 16:00 02/29/24 18:05 02/29/24 16:00 02/29/24 18:05 Laboratory Data (last 24 hrs) 02/29/24 02/29/24 02:00 02:00 WBC 18.10 H Hgb 12.6 Hct 37.6 Plt Count 281 Sodium 143 Potassium 2.7 L BUN 18 Creatinine 0.89 Glucose 110 H Magnesium 1.6 Total Bilirubin 2.5 H AST 332 H ALT 202 H Alkaline Phosphatase 268 H Lipase 147 H
[2024-03-01 03:37] LABS: Absolute Lymphocytes (CBC) 0.7 K/uL (0.7-4.9); Absolute Monocytes 0.6 K/uL (0.1-1.3); Absolute Neutrophil 19.6 K/uL (1.8-8.0); Basophils % 0.1 % (0-1.3); Eosinophils % 0.1 % (0-4.4); Hematocrit 33.3 % (36.0-45.0); Lymphocytes % 3.4 % (15.3-44.8); MCH 28.5 pg (27.0-35.0); MCV 86.6 fL (80-100); MPV 8.1 fL (7.6-11.3); Neutrophils % 93.4 % (41.7-73.7); Platelets 243 thou/uL (152-406); RBC Red Blood Cell Count 3.85 M/uL (3.86-4.86); Red Cell Distribution Width 14.8 % (12.1-15.2)
[2024-03-01 03:55] LABS: Albumin 2.1 g/dL (3.4-5.0); Albumin/Globulin Ratio 0.6 (1.1-1.8); Bilirubin Total 2.9 mg/dL (0.2-1.0); Globulin 3.5 g/dL (2.3-3.5); Protein, Total 5.6 g/dL (6.4-8.2)
[2024-03-01 04:42] LABS: Band Neutrophils 13 % (0-1); Differential Total Cells Count 100; Lymphocytes 2 % (15-42); Monocytes 2 % (0-10); Segmented Neutrophils 83 % (40-80)
[2024-03-01 04:43] LABS: Blood Morphology Comment NOT SEEN (NOT SEEN); Platelet Estimate ADEQ
[2024-03-01] MEDS: ONDANSETRON 4 MG/2 ML VIAL IV PRN (04:59)
[2024-03-01] MEDS: LEVOTHYROXINE SOD 0.088 MG TAB PO SCH (06:00)
[2024-03-01] MEDS ORDERED: propofoL 200 MG/20 ML VIAL IV ONE (06:48)
[2024-03-01] MEDS ORDERED: FENTANYL CITR 100 MCG/2 ML ONE (06:48)
[2024-03-01] MEDS ORDERED: MIDAZOLAM HCL 2 MG/2 ML INJ ONE (06:48)
[2024-03-01] MEDS: ONDANSETRON 4 MG/2 ML VIAL ONE (06:49)
[2024-03-01] MEDS: LIDOCAINE JELLY 2% 5 ML SYRINGE TOP ONE (07:11)
[2024-03-01] MEDS: LIDOCAINE 1% MPF 5 ML VIAL ONE (07:25)
--- NOTE | 2024-03-01 07:46 | P.OP ---
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 Procedure note: The patient was consented in the preoperative holding area before being transferred to the operative suite where mild to moderate sedation was induced. She was on antimicrobial therapy on the floor, but cultures were negative. Pneumoboots were provided for DVT prophylaxis. She was placed in the lithotomy position while still awake, padded and secured to the table appropriately. She was then made a bit more comfortable, and her genitalia was prepped with Hibiclens before being draped in standard fashion. Lidocaine Uro-Jet was applied intraurethrally for local anesthesia. The case was begun using a 22 Panamanian rigid cystoscope to traverse the urethra and into the bladder with ease. The bladder was decompressed of fluid and urine and there were some stone dust within the base of the bladder. The right ureteral orifice was orthotopic in location and I cannulated it with the tip of a 5 Panamanian ureteral access catheter with ease. Right retrograde pyelography: Using a 70: 30 mixture of Omnipaque and saline, contrast was injected via the lumen of the 5 Panamanian ureteral access catheter. The contrast did progress of the mid into the mid distal ureter where there was a transition point and the ureter became dilated. There was some mild tortuosity in the proximal ureter, but contrast did not into the renal pelvis after 10 cc of instillation due to back pressure. As a result, I switched to full-strength Omnipaque and injected an additional 3 to 5 cc and this time was able to see some contrast within the dilated calyces of the right kidney. As a result, I passed a sensor wire via the 5 Panamanian ureteral access catheter coiling it within the upper pole calyx of the kidney. I then remove the 5 Panamanian ureteral access catheter and passed a 6 Panamanian by 24 cm double-J stent over the wire into the kidney with a coil observed fluoroscopically in the renal pelvis and 1 cystoscopically formed in her bladder. I then decompressed her bladder of fluid and urine and remove the cystoscope. She was taken out of the lithotomy position, awakened from anesthesia, transferred to a stretcher, and then transferred to the recovery room in good condition. Complications: None Discharge disposition: Extensive preoperative counseling was provided given her relative risks of anesthesia and her pulmonary fibrosis versus pain and attempts at management of the stone given the metabolic acidosis that it can also induce. Ultimately, she elected to proceed with stent placement locally under sedation, but further efforts at definitive management via ureteroscopy with laser lithotripsy would likely need to be held and a higher level of care with advanced pulmonary management. She did see pulmonology in consultation last night who cleared her for "general anesthesia", but serious consideration should be given to transfer for management [facility] [place] and [facility].
[2024-03-01] MEDS: SERTRALINE HCL 100 MG TAB PO SCH (08:46)
[2024-03-01] MEDS: ALPRAZOLAM 1 MG TABLET PO SCH (08:46)
[2024-03-01] MEDS: ASCORBIC ACID 500 MG TABLET PO SCH (08:46)
[2024-03-01] MEDS: TRELEGY ELLIPTA IH SCH (09:00)
--- NOTE | 2024-03-01 12:10 | P.PN ---
Subjective Date of Service: 03/01/24 Chief Complaint: Right flank pain Pt is resting comfortably in bed. Dr. Thomas took her to the OR today for cystoscopy and renal stent placement. APt is doing well post-op. No other complaints. Review of Systems General: Unremarkable Eyes: Unremarkable ENT: Unremarkable Respiratory: Unremarkable Cardiovascular: Unremarkable Gastrointestinal: Unremarkable Genitourinary: Unremarkable Musculoskeletal: Unremarkable Integumentary: Unremarkable Neurological: Unremarkable Lymphatics: Unremarkable Physical Examination - Vital Signs Temperature: 97.9 F Blood Pressure: 132/69 Pulse: 64 Respirations: 16 Pulse Ox (%): 96 - Physical Exam General: Alert, In no apparent distress, Oriented x3 HEENT: Atraumatic, Normocephalic, PERRLA Neck: Supple, 2+ carotid pulse no bruit Respiratory: Clear to auscultation bilaterally, Normal air movement Cardiovascular: No edema, Normal pulses, Regular rate/rhythm, Normal S1 S2 Capillary refill: <2 Seconds Gastrointestinal: Normal bowel sounds, Soft and benign, Non-distended Musculoskeletal: No clubbing, No swelling, No contractures Integumentary: No rashes, No breakdown, No significant lesion Neurological: Normal gait, Normal speech, Normal strength at 5/5 x4 extr Lymphatics: No axilla or inguinal lymphadenopathy Assessment And Plan - Plan Acute UTI with pyelonephritis: Will continue iv cefepime and f/u urine cx. CT abd shows right hydronephrosis. Consulted Urology. Right hydronephrosis: Due to 5mm renal stone per CT abd. Consulted Urology. Urology did cystoscopy, right retrograde pyelography, and right ureteral stent placement. Will strain her urine. Elevated LFTs: Will f/u liver ultrasound. Will trend LFT. History of pulmonary fibrosis: Continue Ofev and home O2 DVT ppx: Lovenox Code: Full code Dispo: Pending hospital course.
--- NOTE | 2024-03-01 12:28 | RAD REPORT ---
EXAM DESCRIPTION: RAD - Urethrocystogrphy Retrograde - 03/01/2024 7:43 am CLINICAL HISTORY: RT STENT PLACEMENT COMPARISON: None available. FINDINGS: Six Images were sent to PACS, documenting fluoroscopy use during right image guided stent placement procedure. No radiologist was available for the procedure, nor will any image interpretatio n he provided. Please refer to the procedural report for additional details. Fluoroscopy time: 00:14 Minutes. Skin dose: 6.3 mGy IMPRESSION: Documentation of fluoroscopy utilization as above.
[2024-03-01] MEDS: ACETAMINOPHEN 325 MG TABLET PO PRN (18:45)
[2024-03-01] MEDS: BENZONATATE 100 MG CAP PO PRN (20:37)
[2024-03-01] MEDS: FUROSEMIDE 20 MG/ 2ML VIAL ONE (22:55)
[2024-03-01] MEDS: FUROSEMIDE 20 MG/ 2ML VIAL IV ONE (23:20)
--- NOTE | 2024-03-01 23:29 | P.PN ---
Subjective Date of Service: 03/01/24 Chief Complaint: Respiratory distress Patient developed respiratory distress gotten progressively worse Review of Systems General: Weakness Respiratory: Shortness of Breath Physical Examination - Vital Signs Temperature: 98.1 F Blood Pressure: 178/83 Pulse: 89 Respirations: 24 Pulse Ox (%): 73 - Physical Exam General: Alert, Moderate distress Respiratory: Crackles/rales Cardiovascular: No edema, Regular rate/rhythm Assessment And Plan - Current Problems (Diagnosis) (1) Pulmonary fibrosis Current Visit: Yes Status: Acute Plan: Patient developed respiratory distress shortly after her procedure today a code was called patient was started on BiPAP 1 dose of Lasix will give her some steroids for 24 hours stat chest x-ray (2) Elevated LFTs Current Visit: Yes Status: Acute Plan: Abnormal LFTs may be a consequence of possible sepsis/hypotension or side effect of possible Ofev patient is currently on a trial not sure if she is taking the medication continue to monitor
[2024-03-01] MEDS: METHYLPREDNISOLONE 40 MG INJ IV SCH (23:37)
[2024-03-02] MEDS: FLUTICASONE 50MCG NASAL SPRAY NAS SCH (09:00)
[2024-03-02] MEDS: FUROSEMIDE 20 MG/ 2ML VIAL IV SCH (09:30)
[2024-03-02 09:35] LABS: Absolute Lymphocytes (CBC) 0.4 K/uL (0.7-4.9); Absolute Monocytes 0.3 K/uL (0.1-1.3); Absolute Neutrophil 24.4 K/uL (1.8-8.0); Basophils % 0.1 % (0-1.3); Eosinophils % 0.1 % (0-4.4); Hematocrit 40.7 % (36.0-45.0); Hemoglobin 13.5 g/dL (12.0-15.0); Lymphocytes % 1.6 % (15.3-44.8); MCH 28.8 pg (27.0-35.0); MCHC 33.2 g/dL (32.0-36.0); MCV 86.7 fL (80-100); MPV 7.6 fL (7.6-11.3); Monocytes % 1.3 % (3.3-12.3); Neutrophils % 96.9 % (41.7-73.7); Platelets 306 thou/uL (152-406); Red Cell Distribution Width 14.7 % (12.1-15.2)
[2024-03-02 10:43] LABS: Band Neutrophils 2 % (0-1); Differential Total Cells Count 100; Lymphocytes 2 % (15-42); Metamyelocytes 1 % (0-0); Monocytes 1 % (0-10); Segmented Neutrophils 94 % (40-80)
[2024-03-02 10:44] LABS: Blood Morphology Comment NOT SEEN (NOT SEEN); Platelet Estimate ADEQ
--- NOTE | 2024-03-02 11:41 | P.PN ---
Subjective Date of Service: 03/02/24 Chief Complaint: Respiratory distress Pt is resting comfortably in bed. Dr. Olea took her to the OR on 03/01/24 for cystoscopy and renal stent placement. She had respiratory distress last night. S/p lasix and BIPAP. She is feeling better this am. No other complaints. Review of Systems General: Unremarkable Eyes: Unremarkable ENT: Unremarkable Respiratory: Unremarkable Cardiovascular: Unremarkable Gastrointestinal: Unremarkable Genitourinary: Unremarkable Musculoskeletal: Unremarkable Integumentary: Unremarkable Neurological: Unremarkable Lymphatics: Unremarkable Physical Examination - Vital Signs Temperature: 97.4 F Blood Pressure: 160/76 Pulse: 73 Respirations: 32 Pulse Ox (%): 99 - Physical Exam General: Alert, In no apparent distress, Oriented x3 HEENT: Atraumatic, Normocephalic, PERRLA Neck: Supple, 2+ carotid pulse no bruit Respiratory: Normal air movement, Crackles/rales Cardiovascular: No edema, Normal pulses, Regular rate/rhythm, Normal S1 S2 Capillary refill: <2 Seconds Gastrointestinal: Normal bowel sounds, Soft and benign, Non-distended Musculoskeletal: No clubbing, No swelling Integumentary: No rashes, No breakdown, No significant lesion Neurological: Normal gait, Normal speech, Normal strength at 5/5 x4 extr Lymphatics: No axilla or inguinal lymphadenopathy - Studies Microbiology Data (last 24 hrs): 02/29/24 04:05 Clean Catch Urine [place] Count - Final No growth. 02/29/24 04:05 Clean Catch Urine - Final No growth. Assessment And Plan - Plan Acute UTI with pyelonephritis: Will continue iv cefepime and f/u urine cx. CT abd shows right hydronephrosis. Consulted Urology. Right hydronephrosis: Due to 5mm renal stone per CT abd. Consulted Urology. Urology did cystoscopy, right retrograde pyelography, and right ureteral stent placement. Will strain her urine. Acute resp failure with hypoxia: Likely due Pulm edema. S/p lasix. Pt used BIPAP overnight. Currently using 5L BNC. Continue duoneb and tussionex. Will check CXR Elevated LFTs: Will f/u liver ultrasound. Will trend LFT. History of pulmonary fibrosis: Continue Ofev and home O2 DVT ppx: Lovenox Code: Full code Dispo: Pending hospital course.
[2024-03-02] MEDS: HYDROCODONE/CHLORPHEN 5 ML/OSYR PO PRN (17:45)
--- NOTE | 2024-03-03 05:33 | P.PN ---
Subjective Date of Service: 03/02/24 Chief Complaint: Respiratory distress Condition stable Stil requiring more o2 that usual Review of Systems Respiratory: Shortness of Breath Physical Examination - Vital Signs Temperature: 97.7 F Blood Pressure: 149/76 Pulse: 74 Respirations: 24 Pulse Ox (%): 85 - Physical Exam General: Alert, Oriented x3 Respiratory: Crackles/rales (bilaterally) Cardiovascular: No edema, Normal S1 S2 - Studies Microbiology Data (last 24 hrs): 02/29/24 04:05 Clean Catch Urine [place] Count - Final No growth. 02/29/24 04:05 Clean Catch Urine - Final No growth. Assessment And Plan - Current Problems (Diagnosis) (1) Pulmonary fibrosis Current Visit: Yes Status: Acute Plan: Still hypoxic. May need to use BIAP intermitently/ CXRY (2) Elevated LFTs Current Visit: Yes Status: Acute Plan: LFT improving continue to monitor
[2024-03-03 06:28] LABS: Absolute Basophils 0.1 K/uL (0-0.5); Absolute Lymphocytes (CBC) 0.7 K/uL (0.7-4.9); Absolute Monocytes 0.9 K/uL (0.1-1.3); Absolute Neutrophil 28.7 K/uL (1.8-8.0); Basophils % 0.2 % (0-1.3); Lymphocytes % 2.2 % (15.3-44.8); MCH 28.3 pg (27.0-35.0); MCHC 32.6 g/dL (32.0-36.0); MCV 86.6 fL (80-100); MPV 7.7 fL (7.6-11.3); Neutrophils % 94.6 % (41.7-73.7); Platelets 378 thou/uL (152-406); RBC Red Blood Cell Count 4.62 M/uL (3.86-4.86); Red Cell Distribution Width 14.7 % (12.1-15.2)
[2024-03-03 07:04] LABS: Albumin 2.3 g/dL (3.4-5.0); Albumin/Globulin Ratio 0.5 (1.1-1.8); Anion Gap 8.6 mEq/L (5.0-15.0); Bilirubin Total 1.1 mg/dL (0.2-1.0); Globulin 4.6 g/dL (2.3-3.5); Potassium 3.6 mEq/L (3.5-5.1); Protein, Total 6.9 g/dL (6.4-8.2)
--- NOTE | 2024-03-03 10:59 | P.PN ---
Subjective Date of Service: 03/03/24 Chief Complaint: Respiratory distress Pt is resting comfortably in bed. She is using 7l BNC. Pt had respiratory distress earlier this morning after a coughing fit. Dr. Olea took her to the OR on 03/01/24 for cystoscopy and renal stent placement. She had respiratory distress last night. S/p lasix and BIPAP. She is feeling better this am. No other complaints. Review of Systems General: Unremarkable Eyes: Unremarkable ENT: Unremarkable Respiratory: Unremarkable Cardiovascular: Unremarkable Gastrointestinal: Unremarkable Genitourinary: Unremarkable Musculoskeletal: Unremarkable Integumentary: Unremarkable Neurological: Unremarkable Lymphatics: Unremarkable Physical Examination - Vital Signs Temperature: 98.1 F Blood Pressure: 164/75 Pulse: 66 Respirations: 16 Pulse Ox (%): 99 - Physical Exam General: Alert, In no apparent distress, Oriented x3 HEENT: Atraumatic, Normocephalic, PERRLA Neck: Supple, 2+ carotid pulse no bruit, JVD not distended Respiratory: Normal air movement, Crackles/rales Cardiovascular: No edema, Normal pulses, Regular rate/rhythm Capillary refill: <2 Seconds Gastrointestinal: Normal bowel sounds, Soft and benign, Non-distended, W/out succussion splash Musculoskeletal: No clubbing, No swelling, No contractures Integumentary: No rashes, No breakdown, No significant lesion Neurological: Normal speech, Normal strength at 5/5 x4 extr, Normal tone, Sensation intact Lymphatics: No axilla or inguinal lymphadenopathy - Studies Microbiology Data (last 24 hrs): 02/29/24 04:05 Clean Catch Urine [place] Count - Final No growth. 02/29/24 04:05 Clean Catch Urine - Final No growth. Assessment And Plan - Plan Acute UTI with pyelonephritis: Will continue iv cefepime and f/u urine cx. CT abd shows right hydronephrosis. Consulted Urology. Right hydronephrosis: Due to 5mm renal stone per CT abd. Consulted Urology. Urology did cystoscopy, right retrograde pyelography, and right ureteral stent placement. Will strain her urine. Acute resp failure with hypoxia: Likely due Pulm edema. S/p lasix. Pt used BIPAP overnight. Currently using 7L BNC. Continue duoneb and tussionex. Will check CXR. Elevated LFTs: Will f/u liver ultrasound. Will trend LFT. AST 103 <- 204 <- 332. ALT 323 <- 290 <- 268, Alk phos 266 <- 242 <- 202. History of pulmonary fibrosis: Continue Ofev and home O2 DVT ppx: Lovenox Code: Full code Dispo: Pending hospital course. 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
[2024-03-03 11:52] LABS: Arterial Blood Carboxyhemoglob 0.8 % (0-1.5); Blood Gas THB 14.6 g/dl (12-18); Blood O2 Saturation 95.7 % (92-98.5)
--- NOTE | 2024-03-03 13:35 | EKG ---
Test Date: 2024-02-29 Test Time: 03:16:40 Database Modeler: JACOB MEASUREMENT RESULTS: Intervals: Rate: 89 CT: 128 QRSD: 78 QT: 368 QTc: 447 [place]: P: 43 CT: 128 QRS: 22 T: 246 INTERPRETIVE STATEMENTS: Normal sinus rhythm ST & T wave abnormality, consider inferior ischemia ST & T wave abnormality, consider anterolateral ischemia Abnormal ECG Compared to ECG 12/21/2004 11:59:00 ST (T wave) deviation now present Possible ischemia now present T-wave abnormality no longer present Electronically Signed On 03-03-24 13:29:33 CDT by Brannon Espino
[2024-03-03] MEDS: ARFORMOTEROL TARTRATE 15 MCG/2 ML VIAL.NEB NEB SCH (19:48)
[2024-03-03] MEDS: ALPRAZOLAM 1 MG TABLET PO SCH (21:29)
[2024-03-04 03:49] LABS: Absolute Lymphocytes (CBC) 1.5 K/uL (0.7-4.9); Absolute Monocytes 1.2 K/uL (0.1-1.3); Absolute Neutrophil 23.4 K/uL (1.8-8.0); Basophils % 0.1 % (0-1.3); Eosinophils % 0.2 % (0-4.4); Hemoglobin 12.5 g/dL (12.0-15.0); Lymphocytes % 5.9 % (15.3-44.8); MCH 28.7 pg (27.0-35.0); MCV 87.1 fL (80-100); MPV 8.1 fL (7.6-11.3); Monocytes % 4.4 % (3.3-12.3); Neutrophils % 89.4 % (41.7-73.7); Platelets 303 thou/uL (152-406); RBC Red Blood Cell Count 4.36 M/uL (3.86-4.86); Red Cell Distribution Width 14.9 % (12.1-15.2)
[2024-03-04 04:11] LABS: Albumin 2.1 g/dL (3.4-5.0); Albumin/Globulin Ratio 0.5 (1.1-1.8); Anion Gap 4.3 mEq/L (5.0-15.0); Bilirubin Total 0.8 mg/dL (0.2-1.0); Potassium 3.3 mEq/L (3.5-5.1); Protein, Total 6.1 g/dL (6.4-8.2)
--- NOTE | 2024-03-04 07:46 | P.PN ---
Date of Service: 03/04/24 Subjective BiPAP overnight, 12 L, 94% shortness of breath with hypoxia, with exertion Review of Systems Per HPI Physical Examination - Vital Signs Reviewed - Physical Exam General: Alert, In no apparent distress, Oriented x3 HEENT: Atraumatic, Normocephalic, PERRLA Neck: Supple, 2+ carotid pulse no bruit, JVD not distended Respiratory: hypoxia, crackles/rales Cardiovascular: No edema, Normal pulses, Regular rate/rhythm Capillary refill: <2 Seconds Gastrointestinal: Normal bowel sounds, Soft and benign, Non-distended, Musculoskeletal: No clubbing, No swelling, No contractures Integumentary: No rashes, No breakdown, No significant lesion Neurological: Normal speech, Normal strength Assessment And Plan - Plan Acute UTI with pyelonephritis: Sepsis without shock Leukocytosis Will continue iv cefepime and f/u urine cx. CT abd shows right hydronephrosis. Consulted Urology. 03/[address] Thomas s/p stent placement Right hydronephrosis: Obstructive right distal ureteral lithiasis Due to 5mm renal stone per CT abd. Consulted Urology. Urology did cystoscopy, right retrograde pyelography, and right ureteral stent placement. Will strain her urine. Acute resp failure with hypoxia: History of pulmonary fibrosis: Continue Ofev and home O2 Likely due Pulm edema. S/p lasix. Pt used BIPAP overnight. Currently using 7L BNC. Continue duoneb and tussionex. Will check CXR. Pulmonary consult 623 repeat chest x-ray stable pulm 03/04CT of the chest abdomen, no pulmonary embolism, groundglass opacity Transaminitis improving Elevated LFTs: Will f/u liver ultrasound. Will trend LFT. AST 103 <- 204 <- 332. ALT 323 <- 290 <- 268, Alk phos 266 <- 242 <- 202. Hypokalemia Trend electrolytes replace DVT ppx: Lovenox Code: Full code Dispo: Pending hospital course. 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
--- NOTE | 2024-03-04 10:57 | RAD REPORT ---
EXAM DESCRIPTION: CT - Chest Abdomen Pelvis W Cont - 03/04/2024 9:59 am CLINICAL HISTORY: hypoxia COMPARISON: Chest Abdomen Pelvis W Cont dated 02/29/2024 TECHNIQUE: Thin axial CT images of the chest, abdomen, and pelvis, performed following intravenous a dministration of 100mL Isovue-300. Multiplanar reformats were generated and reviewed. All CT scans are performed using dose optimization technique as appropriate and may include automated exposure control or mA/KV adjustment according to patient size. FINDINGS: Progressive central and dependent ground-glass opacification, on a background of extensive bilateral scarring and architectural distortion. Thoracic aorta is normal in caliber. The visualized proximal pulmonary arteries are patent. No pleural or pericardial effusion.No intrathoracic adenopat hy. The liver, spleen, pancreas, and adrenal gland are within normal limits. Small layering gallstones. A right ureteral stent has been placed, with interval improvement of the degree of hydronephrosis. Rig ht superior pole 3.4 cm cystic lesion with enhancing septation, grossly stable. No bowel obstruction, free air, free fluid or abscess. [id number] gaseous distension of the pro ximal colon. . No pathologic lymphadenopathy in the abdomen or pelvis. No worrisome osseous finding. Stable superior endplate T11 compression deformity. IMPRESSION: Progressive central and dependent bilateral lung ground-glass opacities. Findings may re flect pulmonary edema or a multifocal infectious/inflammatory process. Right ureteral stent has been placed, in satisfactory position. Interval improvement of right hydrone phrosis. Other stable findings, including a right superior pole 3.4 cm renal cyst with enhancing septation, no t adequately characterized.
--- NOTE | 2024-03-04 12:21 | P.PN ---
Subjective Date of Service: 03/04/24 Chief Complaint: Pulmonary fibrosis Patient is doing a bit better still short of breath and desaturation on mild exertion no more abdominal pain Review of Systems General: Weakness Respiratory: Shortness of Breath Physical Examination - Vital Signs Temperature: 98.4 F Blood Pressure: 128/64 Pulse: 70 Respirations: 18 Pulse Ox (%): 95 - Physical Exam General: Alert, Oriented x3 Respiratory: Crackles/rales Cardiovascular: No edema, Normal pulses, Normal S1 S2 Assessment And Plan - Current Problems (Diagnosis) (1) Pulmonary fibrosis Current Visit: Yes Status: Acute Plan: Patient continues to remain hypoxic she will benefit from a life 2000 equipment respiratory failure with significant desaturation on mild exertion evaluated for lung transplant white count is still elevated CT scan of the chest abdomen reviewed improvement in her hydronephrosis white count elevated so is a procalcitonin level liver function test improving resume prednisone cultures all negative (2) Elevated LFTs Current Visit: Yes Status: Acute Plan: LFT improving continue to monitor
[2024-03-04] MEDS: SPIRONOLACTONE 25 MG TABLET PO SCH (12:33)
[2024-03-04] MEDS: predniSONE 20 MG TAB PO SCH (12:33)
[2024-03-04] MEDS: ALBUMIN HUMAN 25% 100 ML IV ONE (13:59)
[2024-03-04] MEDS: METHYLPREDNISOLONE 40 MG INJ IV ONE (13:59)
[2024-03-04] MEDS: clonazePAM 0.5 MG TAB PO ONE (15:30)
[2024-03-04] MEDS ORDERED: clonazePAM 0.5 MG TAB FT ONE (16:00)
--- NOTE | 2024-03-04 18:46 | RAD REPORT ---
EXAM DESCRIPTION: RAD - Chest Single View - 03/01/2024 11:38 pm CLINICAL HISTORY: Short of breath COMPARISON: 12/19/2023. TECHNIQUE: XR CHEST 1 VIEW 03/01/2024 10:58 PM CDT FINDINGS: Cardiac silhouette is normal in size. There is moderate airspace disease nearly diffusely throughout both lungs. There is no pleural effusion. There is no pneumothorax. There are no acute oss eous findings. IMPRESSION: Extensive bilateral pneumonia. Electronically signed by: Lance Meza MD 03/02/2024 12:05 AM CDT RP Due to temporary technical issues with the PACS/Fluency reporting system, reports are being signed by the in house radiologists without review as a courtesy to insure prompt reporting. The interpreting radiologist is fully responsible for the content of the report.
--- NOTE | 2024-03-04 21:32 | RAD REPORT ---
EXAM DESCRIPTION: RAD - Chest Single View - 03/03/2024 6:30 am CLINICAL HISTORY: O2 desaturation SOB COMPARISON: 30/09/2023 FINDINGS: Low lung volumes with symmetric bilateral mixed interstitial and airspace disease. Finding s are similar to the prior exam. No significant effusion or pneumothorax. Heart size and mediastinal contours are stable. IMPRESSION: Stable chest. RECOMMENDATIONS: Electronically signed by: Juancho Bedolla MD 03/03/2024 07:19 AM CDT RP Due to temporary technical issues with the PACS/Fluency reporting system, reports are being signed by the in house radiologists without review as a courtesy to insure prompt reporting. The interpreting radiologist is fully responsible for the content of the report.
[2024-03-05 03:05] LABS: Absolute Lymphocytes (CBC) 0.7 K/uL (0.7-4.9); Absolute Monocytes 0.4 K/uL (0.1-1.3); Absolute Neutrophil 16.2 K/uL (1.8-8.0); Basophils % 0.1 % (0-1.3); Hematocrit 38.3 % (36.0-45.0); Hemoglobin 12.6 g/dL (12.0-15.0); Lymphocytes % 3.8 % (15.3-44.8); MCH 28.7 pg (27.0-35.0); MCHC 32.9 g/dL (32.0-36.0); MCV 87.2 fL (80-100); MPV 7.7 fL (7.6-11.3); Monocytes % 2.3 % (3.3-12.3); Nucleated Red Blood Cells % 0.1 % (0-0); Platelets 273 thou/uL (152-406); Red Cell Distribution Width 14.7 % (12.1-15.2)
[2024-03-05 03:09] LABS: Neutrophils % 93.8 % (41.7-73.7)
[2024-03-05 03:27] LABS: Albumin 2.6 g/dL (3.4-5.0); Albumin/Globulin Ratio 0.7 (1.1-1.8); Anion Gap 7.9 mEq/L (5.0-15.0); Potassium 3.9 mEq/L (3.5-5.1); Protein, Total 6.6 g/dL (6.4-8.2)
--- NOTE | 2024-03-05 08:39 | P.PN ---
Date of Service: 03/05/24 Subjective BiPAP overnight, 12 L, 94% shortness of breath with exertion family at bedside Review of Systems Per HPI Physical Examination - Vital Signs Reviewed - Physical Exam General: Alert, oriented HEENT PERRLA Neck: Supple, 2+ carotid pulse no bruit, JVD not distended Respiratory: hypoxic, crackles, high flow Cardiovascular: Regular rate/rhythm Capillary refill: <2 Seconds Gastrointestinal: Normo active bowel sounds Musculoskeletal: No clubbing, No swelling, No contractures Integumentary: No rashes, No breakdown, No significant lesion Neurological: Normal speech, Normal strength Assessment And Plan - Plan Acute UTI with pyelonephritis: Sepsis without shock Leukocytosis Will continue iv cefepime and f/u urine cx. CT abd shows right hydronephrosis. Consulted Urology. 03/[address] Thoams s/p stent placement Repeat CT scan shows improvement of hydronephrosis Right hydronephrosis: Obstructive right distal ureteral lithiasis Due to 5mm renal stone per CT abd. Consulted Urology. Urology did cystoscopy, right retrograde pyelography, and right ureteral stent placement. Will strain her urine. Stent in place patient will need to follow-up with Dr. Olea after discharge Acute resp failure with hypoxia: History of pulmonary fibrosis: Continue Ofev and home O2 Likely due Pulm edema. S/p lasix. Pt used BIPAP overnight. Currently using 7L BNC. Continue duoneb and tussionex. Will check CXR. Pulmonary consult 623 repeat chest x-ray stable pulm 03/04CT of the chest abdomen, no pulmonary embolism, groundglass opacity Pending transfer to [facility] for evaluation pulmonary transplant Transaminitis improving Elevated LFTs: Will f/u liver ultrasound. Will trend LFT. AST 103 <- 204 <- 332. ALT 323 <- 290 <- 268, Alk phos 266 <- 242 <- 202. Hypokalemia Trend electrolytes, replete as needed DVT ppx: Lovenox Code: Full code Dispo: Pending hospital course. 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
--- NOTE | 2024-03-05 08:44 | P.DS ---
Admission Date: 02/29/24 Discharge Date: 03/06/24 Disposition: TRANSFER TO [facility] Discharge Condition: FAIR Reason for Admission: Pulmonary fibrosis Brief History of Present Illness: 61-year-old female with history of hypertension, pulmonary fibrosis secondary to COVID, on home oxygen 3 L/min use presented because she developed onset of right flank pain. Symptoms since the last 3 days but appear to be worsening, symptoms worse with movement. She denies any dysuria. She admits to chills but denies any fever. She states she has an episode of cough 1 week ago that was treated with empirical steroids and now prednisone. Her COVID screen then was negative. She presented today because of a worsening back pain. On arrival in the ED she was afebrile, vital signs stable, laboratory workup shows elevated WBC of 18,000 with 90% bands, BMP shows potassium of 2.7, creatinine of 0.8, normal lactic acid of 1.7, liver enzymes markedly elevated, lipase 147, total bili of 2.5. CT abdomen and pelvis reviewed by me, findings of right hydronephrosis, official reading pending. Patient be admitted for presumed right hydronephrosis with pyelonephritis - Physical Exam General: Alert, In no apparent distress, Oriented x3, Cooperative HEENT: Atraumatic, Normocephalic, PERRLA Neck: 2+ carotid pulse no bruit, JVD not distended Respiratory: Clear to auscultation bilaterally, Normal air movement, Other (On home O2) Cardiovascular: Normal pulses, Regular rate/rhythm, Normal S1 S2 Gastrointestinal: Normal bowel sounds, Soft and benign, Non-distended, No ascites, No tenderness Musculoskeletal: No clubbing, No swelling Integumentary: No breakdown, No significant lesion, No tenderness/swelling Neurological: Normal speech, Normal strength at 5/5 x4 extr, Sensation intact, Cranial nerves 3-12 intact Hospital Course: 63 year-old patient with history of hypertension, pulmonary fibrosis secondary to COVID, on home oxygen 3 L/min use presented because she developed onset of right flank pain. Was noted to have hydronephrosis, pyelonephritis. Condition improved with urology evaluation, ureteral stent, IV antibiotics. Also noted to have hypoxia, was evaluated by pulmonary. Patient tolerating diet, plan to discharge to [facility] for a evaluation for lung transplant for acute on chronic hypoxia. PROBLEM: Pyelonephritis treated with IV antibiotics Hydronephrosis treated with ureteral stent with Dr. Olea Acute hypoxic respiratory failure secondary to pulmonary fibrosis plan to transfer to [facility] for evaluation for lung transplant Elevated liver enzymes Rad/Lab/Micro: CT abd shows right hydronephrosis. Consulted Urology. Patient treated with a ureteral stent Repeat CT of the abdomen pelvis shows hydronephrosis improved, persistent groundglass opacities, negative for pulmonary embolism Continue home medicines as previously prescribed GOAL: Clear understanding of disease process INSTRUCTIONS: Physician Discharge Instructions: -Follow-up with PCP in 1 to 2 weeks after discharge home -Please call Dr. Moreau at [phone] if any questions regarding hospital stay -Please call nursing station at [phone] if any nursing or medication questions -Return to the emergency room if symptoms worsen Diet: ADA, low sodium Activity: Fall precautions Vital Signs/Physical Exam: Temp Pulse Resp BP Pulse Ox 98.3 F 70 16 158/72 H 16 L 03/05/24 08:00 03/05/24 08:00 03/05/24 08:00 03/05/24 08:00 03/05/24 08:00 Laboratory Data at Discharge: WBC 17.30 thou/uL (4.3-10.9) H 03/05/24 02:54 Hgb 12.6 g/dL (12.0-15.0) 03/05/24 02:54 Hct 38.3 % (36.0-45.0) 03/05/24 02:54 Plt Count 273 thou/uL (152-406) 03/05/24 02:54 PT 12.7 SECONDS (9.4-12.5) H 02/29/24 11:02 INR 1.16 02/29/24 11:02 APTT 26.5 SECONDS (24.3-36.9) 02/29/24 11:02 Sodium 141 mEq/L (136-145) 03/05/24 02:54 Potassium 3.9 mEq/L (3.5-5.1) D 03/05/24 02:54 BUN 21 mg/dL (7-18) H 03/05/24 02:54 Creatinine 0.72 mg/dL (0.55-1.02) 03/05/24 02:54 Glucose 131 mg/dL (74-106) H 03/05/24 02:54 Magnesium 1.6 mg/dL (1.6-2.4) 02/29/24 02:00 Total Bilirubin 1.0 mg/dL (0.2-1.0) 03/05/24 02:54 AST 42 U/L (15-37) H 03/05/24 02:54 ALT 139 U/L (13-56) H 03/05/24 02:54 Alkaline Phosphatase 217 U/L (45-117) H 03/05/24 02:54 Lipase 147 U/L (13-75) H 02/29/24 02:00 Home Medications: ALPRAZolam [Xanax] 1 mg PO BID 02/29/24 Ascorbic Acid [Vitamin C] 1,000 mg PO DAILY 02/29/24 Atorvastatin Calcium 40 mg PO BEDTIME 02/29/24 Cholecalciferol (Vitamin D3) [Vitamin D3] 1,000 unit PO BEDTIME 02/29/24 Diltiazem HCl [Diltiazem ER] 180 mg PO BEDTIME 02/29/24 Fluticasone/Umeclidin/Vilanter [Trelegy Ellipta 100-62.5-25] 1 each IH DAILY 02/29/24 Ipratropium Neb [Atrovent Neb] 0.2 mg IH Q6HP PRN 02/29/24 Lactobacillus Combo No.10 [Probiotic] 1 each PO BEDTIME 02/29/24 Levothyroxine [Synthroid] 88 mcg PO [id number] 02/29/24 Melatonin [Melatonin*] 10 mg PO BEDTIME 02/29/24 Mirtazapine [Remeron] 15 mg PO BEDTIME 02/29/24 Multivitamin [Multiple Vitamins] 1 each PO DAILY 02/29/24 Nintedanib Esylate [Ofev] 100 mg PO BID 02/29/24 Sertraline [Zoloft] 150 mg PO DAILY 02/29/24 Physician Discharge Instructions: UROLOGY DISCHARGE INSTRUCTIONS You have a new right ureteral stent that has been placed. This is a foreign body, which must be removed within 6 months maximum to prevent complications of it becoming encrusted or causing her chronic infection. Please ensure to follow-up as soon as possible to discuss next steps in management for your ureteral stone, which will still be present alongside the stent until it is removed. Notify me if you develop any fever (temperature greater than 100.4 Fahrenheit), intractable nausea or vomiting, increasing pain not controlled by pain medications, or other unusual signs or symptoms. It is common to see some blood in the urine following your procedure. It will be light pink/cranberry colored initially, and then it will become dark or tea colored, when the blood oxidized is in the urine, before it finally clears up. It is only a concern if you note bright red and thick/nontranslucent (not see-through) blood in the urine that appears like tomato juice. Notify me if you have any difficulty urinating, or if you feel the need to push or strain to urinate, as this may be a problem. For pain management, you may take plain Tylenol (up to 1000 mg every 6 hours maximum) and alternate this every 4 hours with Motrin/ibuprofen (up to 800 mg every 8 hours maximum) for your pain. Please take note and keep the total 24- hour daily dose of Tylenol/acetaminophen less than 4000 mg / 4 g from all sources. You may purchase [id number] Azo (Pyridium) if you have burning with urination. Please note, it will turn your urine bright orange. Please contact my office at [phone] to arrange follow-up. All the best [facility] DISCHARGE 63 year-old patient with history of hypertension, pulmonary fibrosis secondary to COVID, on home oxygen 3 L/min use presented because she developed onset of right flank pain. Was noted to have hydronephrosis, pyelonephritis. Condition improved with urology evaluation, ureteral stent, IV antibiotics. Also noted to have hypoxia, was evaluated by pulmonary. Worsening oxygenation. Went ahead and arrange for transfer to transplant physician. Patient tolerating diet, plan to discharge to [facility] for a evaluation for lung transplant for acute on chronic hypoxia. PROBLEM: Pyelonephritis treated with IV antibiotics Hydronephrosis treated with ureteral stent with Dr. Olea Acute hypoxic respiratory failure secondary to pulmonary fibrosis plan to transfer to [facility] for evaluation for lung transplant Elevated liver enzymes improving ast 103-42, alt 266-139 Rad/Lab/Micro: CT abd shows right hydronephrosis. Consulted Urology. Patient treated with a ureteral stent 03/[address] of the abdomen pelvis shows hydronephrosis improved, persistent groundglass opacities, negative for pulmonary embolism Right ureteral stent has been placed, in satisfactory position. Interval improvement of right hydronephrosis. Other stable findings, including a right superior pole 3.4 cm renal cyst with enhancing septation, not adequately characterized. Continue home medicines as previously prescribed GOAL: Clear understanding of disease process INSTRUCTIONS: Physician Discharge Instructions: -Follow-up with PCP in 1 to 2 weeks after discharge home -Please call Dr. Moreau at [phone] if any questions regarding hospital stay -Please call nursing station at [phone] if any nursing or medication questions -Return to the emergency room if symptoms worsen Diet: ADA, low sodium Activity: Fall precautions Diet: AHA Activity: Ad leslie Followup: Peterson Judd MD [ACTIVE - CAN ADMIT] - 1-2 Weeks NONE,NONE [UNKNOWN] - Tay Olea [ACTIVE - CAN ADMIT] - 1-2 Weeks Time spent managing pt's care (in minutes): 55
[2024-03-06 03:03] LABS: Absolute Lymphocytes (CBC) 0.7 K/uL (0.7-4.9); Absolute Monocytes 0.6 K/uL (0.1-1.3); Absolute Neutrophil 17.7 K/uL (1.8-8.0); Basophils % 0.2 % (0-1.3); Eosinophils % 0.3 % (0-4.4); Hematocrit 39.7 % (36.0-45.0); Hemoglobin 13.2 g/dL (12.0-15.0); Lymphocytes % 3.8 % (15.3-44.8); MCH 28.8 pg (27.0-35.0); MCHC 33.1 g/dL (32.0-36.0); MPV 8.2 fL (7.6-11.3); Monocytes % 3.2 % (3.3-12.3); Neutrophils % 92.5 % (41.7-73.7); Platelets 280 thou/uL (152-406); RBC Red Blood Cell Count 4.56 M/uL (3.86-4.86); Red Cell Distribution Width 14.6 % (12.1-15.2)
[2024-03-06 03:17] LABS: Albumin 2.7 g/dL (3.4-5.0); Albumin/Globulin Ratio 0.7 (1.1-1.8); Anion Gap 8.7 mEq/L (5.0-15.0); Bilirubin Total 0.8 mg/dL (0.2-1.0); Globulin 3.9 g/dL (2.3-3.5); Potassium 3.7 mEq/L (3.5-5.1); Protein, Total 6.6 g/dL (6.4-8.2)
[2024-03-06 03:56] LABS: Band Neutrophils 5 % (0-1); Blood Morphology Comment NOT SEEN (NOT SEEN); Differential Total Cells Count 100; Lymphocytes 4 % (15-42); Monocytes 5 % (0-10); Platelet Estimate ADEQ; Segmented Neutrophils 86 % (40-80)
[2024-03-06 12:05] VITALS: BP 133/69; TEMP 98.3
[2024-03-06] MEDS: MORPHINE 2 MG/ML SYR IV ONE (12:07)
[2024-03-06] MEDS: FUROSEMIDE 20 MG/ 2ML VIAL IV ONE (12:18)
[2024-03-06] MEDS ORDERED: MORPHINE 4 MG/ML SYR IV ONE (13:00)
[2024-03-06] MEDS: LORazepam 2 MG/ML VIAL IV ONE (13:08)
[2024-03-06 14:36] VITALS: O2SAT 94
== END 2024-03-06 13:59 | disposition short-term general hospital (02) | DRG 853 ==
LOC: ER 01:19 → 2ND 05:27
PROVIDERS: ADMIT Internal Medicine; ATTEND Hospitalist
PROC: 4A033R1 Measurement of Arterial Saturation, Peripheral, Percutaneous Approach (ICD-10-PCS; 2024-03-01)
PROC: 5A09557 Assistance with Respiratory Ventilation, Greater than 96 Consecutive Hours, Continuous Positive Airway Pressure (ICD-10-PCS; 2024-03-01)
PROC: BT1D1ZZ Fluoroscopy of Right Kidney, Ureter and Bladder using Low Osmolar Contrast (ICD-10-PCS; 2024-03-01)
PROC: 0T768DZ Dilation of Right Ureter with Intraluminal Device, Via Natural or Artificial Opening Endoscopic (ICD-10-PCS; principal; 2024-03-01 07:00)
PROC: 5A0945A Assistance with Respiratory Ventilation, 24-96 Consecutive Hours, High Flow/Velocity Cannula (ICD-10-PCS; 2024-03-05)
DX: A41.9 Sepsis, unspecified organism (principal); J96.01 Acute respiratory failure with hypoxia; N13.6 Pyonephrosis; J84.10 Pulmonary fibrosis, unspecified; I10 Essential (primary) hypertension; E87.6 Hypokalemia; U09.9 Post COVID-19 condition, unspecified; T38.0X5A Adverse effect of glucocorticoids and synthetic analogues, initial encounter; R79.89 Other specified abnormal findings of blood chemistry; Z88.5 Allergy status to narcotic agent; Z76.82 Awaiting organ transplant status; Z99.81 Dependence on supplemental oxygen; Z11.52 Encounter for screening for COVID-19; Z79.01 Long term (current) use of anticoagulants; Z86.14 Personal history of Methicillin resistant Staphylococcus aureus infection; Z79.890 Hormone replacement therapy; Z79.899 Other long term (current) drug therapy; Z90.710 Acquired absence of both cervix and uterus
CPT/HCPCS: 36415; 36600; 50590; 51610; 51702; 71045; 71260; 74177; 74450; 80048; 80053; 80076; 81001; 82550; 82805; 83605; 83690; 83735; 83880; 84132; 84145; 84484; 85025; 85610; 85730; 86140; 87040; 87086; 87088; 87804; 87811; 93005; 94010; 94640; 94660; 94760; 96374; 96375; 99285; J0692; J1650; J1940; J2001; J2250; J2405; J2543; J2704; J2919; J3010; J3475; J7030; J7120; J7512; J7605; J7613; J7644; P9047; Q9967

== ENCOUNTER 2024-10-14 14:03 | Emergency (ER) | payer OTHER ==
--- NOTE | 2024-10-14 14:56 | RAD REPORT ---
EXAM: Chest Single View HISTORY: COUGH COMPARISON: 03/03/2024 FINDINGS: LUNGS/PLEURA: Mild hazy opacities in the lung bases favored chronic. Overall, the aeration has improv ed from prior MEDIASTINUM: The mediastinal silhouette is within normal limits. CARDIAC: Mild cardiomegaly UPPER ABDOMEN: No significant abnormality. BONES: No acute abnormality. LINES/TUBES/OTHER: N/A IMPRESSION: Opacities in the lung bases which may be chronic however infection, particularly at the right lung ba se would be difficult to exclude radiographically.
[2024-10-14] MEDS ORDERED: NA CHLORIDE 0.9% 250 ML ONE (15:45)
[2024-10-14] MEDS ORDERED: ONDANSETRON 4 MG/2 ML VIAL ONE (15:45)
[2024-10-14] MEDS ORDERED: VANCOMYCIN 1 GM/VIAL ONE (15:45)
[2024-10-14 15:46] LABS: Absolute Lymphocytes (CBC) 0.2 K/uL (0.7-4.9); Absolute Monocytes 0.2 K/uL (0.1-1.3); Absolute Neutrophil 3.3 K/uL (1.8-8.0); Basophils % 0.7 % (0-1.3); Eosinophils % 0.6 % (0-4.4); Hematocrit 31.2 % (36.0-45.0); Hemoglobin 10.5 g/dL (12.0-15.0); Lymphocytes % 5.4 % (15.3-44.8); MCH 32.6 pg (27.0-35.0); MCHC 33.8 g/dL (32.0-36.0); MCV 96.4 fL (80-100); MPV 8.2 fL (7.6-11.3); Monocytes % 4.1 % (3.3-12.3); Neutrophils % 89.2 % (41.7-73.7); Nucleated Red Blood Cells % 0.1 % (0-0); Platelets 198 thou/uL (152-406); RBC Red Blood Cell Count 3.23 M/uL (3.86-4.86)
[2024-10-14] MEDS ORDERED: NA CHLORIDE 0.9% 500 ML ONE (15:46)
[2024-10-14] MEDS ORDERED: FENTANYL CITR 100 MCG/2 ML ONE (15:47)
[2024-10-14 15:55] LABS: PT Prothrombin Time 14.3 SECONDS (9.4-12.5); PTT, Activated Partial Thromb 28.8 SECONDS (24.3-36.9); Protime INR 1.37
[2024-10-14 16:01] LABS: Albumin 2.6 g/dL (3.4-5.0); Albumin/Globulin Ratio 0.6 (1.1-1.8); Anion Gap 11.4 mEq/L (5.0-15.0); Bilirubin Total 0.3 mg/dL (0.2-1.0); Globulin 4.3 g/dL (2.3-3.5); Potassium 4.4 mEq/L (3.5-5.1); Protein, Total 6.9 g/dL (6.4-8.2); Troponin High Sensitivity 13.8 pg/mL (<58.9)
--- NOTE | 2024-10-14 16:05 | RAD REPORT ---
Extremity Venous Uni Ltd CLINICAL INDICATION: Female, 63 years old.Pain;Swelling TECHNIQUE: Complete duplex sonography of the lower extremity veins was performed of the affected limb . The examination included compression for vein patency, color Doppler imaging and flow augmentation in response to distal compression of the distal external iliac, common femoral, femoral, popliteal, peroneal, tibial and great saphenous veins. [id number]. COMPARISON: No prior exams FINDINGS: Duplex sonography imaging demonstrates all deep veins examined to be fully compressible with spontane ous, phasic and augmented flow in the affected limb. IMPRESSION: No evidence of deep venous thrombosis in the left lower extremity.
--- NOTE | 2024-10-14 16:10 | RAD REPORT ---
EXAMINATION: US LOWER EXTREMITIES ARTERIAL DOPPLER LEFT CLINICAL INDICATION: Female, 63 years old. PAIN TECHNIQUE: Arterial duplex ultrasound was performed of the left leg with real-time and Doppler evalua tion. [id number]. COMPARISON: No prior exam. FINDINGS: Left leg Doppler: Common femoral: Waveform: Biphasic Peak systolic velocity (cm/sec): 133 Superficial femoral: Waveform: Biphasic Peak systolic velocity (cm/sec): 115 Popliteal Waveform: Biphasic Peak systolic velocity (cm/sec): 99 Tibial: Waveform: Biphasic Peak systolic velocity (cm/sec): 86 Dorsalis pedis: Waveform: Biphasic Peak systolic velocity (cm/sec): 89 IMPRESSION: No flow-limiting arterial stenosis identified in the left lower extremity
--- NOTE | 2024-10-14 16:35 | RAD REPORT ---
EXAMINATION: Foot Left 3 View CLINICAL INDICATION: Female, 63 years old. Pain;Swelling COMPARISON: No prior exam. VIEWS: Three views FINDINGS: No acute fracture. No malalignment/dislocation. Mild midfoot and hindfoot degenerative changes. Osteopenia. Other: No radiographic evidence of osteomyelitis. Question laceration at the heel. No radiopaque fore ign body. IMPRESSION: No acute osseous abnormality. .
[2024-10-14 16:43] LABS: SARS-CoV-2 Antigen CONTROL BLUE LINE VIS/BG OK; SARS-CoV-2 Antigen Rapid Res Negative (Negative)
--- NOTE | 2024-10-14 17:41 | EDPHYS ---
Physician Documentation [facility] Name: Karlene Salgado Age: 63 yrs Sex: Female : 1960 Arrival Date: 10/14/2024 Time: 14:03 Bed 20 Private MD: ED Physician Ady Sexton HPI: 10/14 14:33 This 63 yrs old Female presents to ER via Ambulatory with complaints of Left foot cp infection. 14:33 The patient presents with pain, that is acute, swelling, tenderness. The complaints cp affect the left foot. Onset: The symptoms/episode began/occurred this morning. 14:33 Associated signs and symptoms: Pertinent positives: fever, warmth. Treatment prior to cp arrival includes: over the counter medications, Tylenol. Historical: - Allergies: 14:35 Hydrocodone-Acetaminophen; kj2 - Immunization history:: Adult Immunizations unknown. - Infectious Disease History:: Denies. - Social history:: Smoking status: unknown. ROS: 14:35 Constitutional: Positive for fever, Negative for body aches, poor PO intake, cp 14:35 Eyes: Negative for injury, pain, redness, and discharge, cp 14:35 ENT: Negative for drainage from ear(s), ear pain, sore throat, difficulty swallowing, difficulty handling secretions, 14:35 Cardiovascular: Negative for chest pain, edema, palpitations, 14:35 Respiratory: Positive for cough, Negative for shortness of breath, wheezing, 14:35 Abdomen/GI: Negative for abdominal pain, vomiting, diarrhea, constipation, 14:35 Back: Negative for pain at rest, pain with movement, 14:35 : Negative for urinary symptoms, flank pain, 14:35 MS/extremity: Positive for erythema, pain, swelling, tenderness, of the left foot, 14:35 Neuro: Negative for altered mental status, dizziness, headache, numbness, weakness, 14:35 All other systems are negative, Exam: 14:40 Constitutional: The patient appears in no acute distress, alert, awake, cp non-diaphoretic, non-toxic, well developed, well nourished, uncomfortable, 14:40 Head/Face: Normocephalic, atraumatic. cp 14:40 Eyes: Periorbital structures: appear normal, Conjunctiva: normal, no exudate, no injection, Sclera: no appreciated abnormality, Lids and lashes: appear normal, bilaterally, 14:40 ENT: External ear(s): are unremarkable, Nose: is normal, Mouth: Lips: moist, Oral mucosa: moist, Posterior pharynx: Airway: no evidence of obstruction, patent, swelling, is not appreciated, erythema, is not appreciated, exudate, is not appreciated, 14:40 Neck: ROM/movement: is normal, is supple, without pain, no range of motions limitations, 14:40 Chest/axilla: Inspection: normal, 14:40 Cardiovascular: Rate: normal, Rhythm: regular, JVD: is not appreciated, 14:40 Respiratory: the patient does not display signs of respiratory distress, Respirations: normal, no use of accessory muscles, no retractions, labored breathing, is not present, Breath sounds: bronchial sounds, that are mild, are heard diffusely, stridor, is not appreciated, wheezing: is not appreciated, 14:40 Abdomen/GI: Inspection: abdomen appears normal, Bowel sounds: active, all quadrants, Palpation: abdomen is soft and non-tender, in all quadrants, 14:40 Back: pain, is absent, 14:40 Musculoskeletal/extremity: Extremities: noted in the left foot: darkened discoloration of toes, mild swelling and dorsal side erythema, tenderness to palpation, 14:40 Neuro: Orientation: to person, place \T\ time. Mentation: is normal, 20:13 ECG was reviewed by the Attending Physician. cp Vital Signs: 14:35 BP 127 / 65; Pulse 87; Resp 20; Temp 98.7; Pulse Ox 98% on R/A; kj2 14:38 Weight 68.04 kg; Height 5 ft. 6 in. ; kj2 15:30 BP 125 / 65; Pulse 85; Resp 20; Pulse Ox 96% on R/A; kj2 16:27 BP 120 / 56; Pulse 80; Resp 20; Pulse Ox 95% on R/A; kj2 17:30 BP 123 / 68; Pulse 78; Resp 18; Pulse Ox 97% on R/A; kj2 18:30 BP 145 / 77; Pulse 82; Resp 18; Pulse Ox 100% ; kj2 19:30 BP 132 / 78; Pulse 76; Resp 18; Pulse Ox 100% on R/A; kj2 20:33 BP 128 / 74; Pulse 72; Resp 20; Temp 98.2; Pulse Ox 99% on R/A; kj2 14:38 Body Mass Index 24.21 (68.04 kg, 167.64 cm) kj2 MDM: 14:20 Medical Screening Exam initiated 17:50 Data reviewed: vital signs, nurses notes, lab test result(s), EKG, radiologic studies, plain films, ultrasound, and as a result, I will transfer patient. 17:50 I considered the following discharge prescriptions or medication management in the emergency department Medications were administered in the Emergency Department. See MAR. Independent interpretation of the following test(s) in the Emergency Department EKG: See my EKG interpretation above. Care significantly affected by the following chronic conditions: history of bilateral lung transplant. Counseling: I had a detailed discussion with the patient and/or guardian regarding the historical points, exam findings, and any diagnostic results supporting the discharge/admit diagnosis, lab results, radiology results, the need to transfer to another facility, for higher level of care. 18:15 Management of patient was discussed with the following: transplant team physician at [facility] who will accept transfer. 10/14 14:29 Order name: Blood Culture Adult (2) 10/14 14:29 Order name: CBC with Diff 10/14 16:46 Interpretation: Normal except: WBC 3.70; RBC 3.23; HGB 10.5; HCT 31.2; RDW 21.0; JOSUE% cp 89.2; LYM% 5.4; LYMA 0.2. 10/14 14:29 Order name: CMP; Complete Time: 16:46 10/14 16:49 Interpretation: Normal except: CL 108; GLUC 176; BUN 48; CRE 1.36; GFR 44; ALK 254; ALB cp 2.6; GLOB 4.3; A/G 0.6. 10/14 14:29 Order name: Lactate w/ 2H reflex if indic.; Complete Time: 16:46 10/14 16:50 Interpretation: Reviewed. 10/14 14:29 Order name: Protime (+inr); Complete Time: 16:46 10/14 14:29 Order name: Ptt, Activated; Complete Time: 16:46 10/14 14:29 Order name: Troponin High Sensitivity; Complete Time: 16:46 02/03 14:29 Order name: SARS RAPID; Complete Time: 16:46 cp 10/14 14:29 Order name: RSV; Complete Time: 16:46 cp 10/14 14:29 Order name: Influenza Screen (a \T\ B); Complete Time: 16:46 cp 10/14 14:29 Order name: Chest Single View XRAY; Complete Time: 14:57 cp 10/14 14:57 Interpretation: Report review. cp 02 15:00 Order name: US Extremity Venous Unilateral Ltd; Complete Time: 16:46 cp 10/14 15:00 Order name: Lower Extremity Artery Uni Ltd US; Complete Time: 16:46 cp 10/14 15:47 Order name: XRAY Foot LEFT 3 View; Complete Time: 16:46 cp 10/14 14:29 Order name: Accucheck; Complete Time: 15:30 cp 10/14 14:29 Order name: Cardiac monitoring; Complete Time: 15:30 cp 10/14 14:29 Order name: EKG - Nurse/Tech; Complete Time: 19:07 cp 10/14 14:29 Order name: IV Saline Lock - Large Bore; Complete Time: 15:30 cp 10/14 14:29 Order name: Labs collected and sent; Complete Time: 15:30 cp 10/14 14:29 Order name: O2 Per Protocol; Complete Time: 15:30 cp 10/14 14:29 Order name: O2 Sat Monitoring; Complete Time: 15:30 cp 10/14 14:29 Order name: Vital Signs; Complete Time: 15:30 cp EC:13 Rate is 82 beats/min. Rhythm is regular. [place] interval is normal. QRS interval is normal. cp QT interval is normal. T waves are Inverted. Interpreted by me. Reviewed by me. Administered Medications: 15:50 Drug: Ondansetron IVP 4 mg IVP once; over 2 minutes Route: IVP; Site: left antecubital; kj2 17:05 Follow up: Response: No adverse reaction kj2 15:55 Drug: NS 0.9% IV 500 ml 500 ml IV at 1 bolus once; to be given as a bolus over 30 kj2 minutes Volume: 500 ml; Route: IV; Rate: 1 bolus; Site: left antecubital; 17:05 Follow up: IV Status: Completed infusion; IV Intake: 500ml kj2 15:58 Drug: fentaNYL (PF) IVP 25 mcg IVP once Route: IVP; Site: left antecubital; kj2 17:06 Follow up: Response: No adverse reaction; Pain is decreased kj2 16:00 Drug: vancoMYCIN IVPB 1 grams IVPB once over 2 hrs Route: IVPB; Infused Over: 2 hrs; kj2 Site: left antecubital; 19:22 Drug: Cefepime IVPB 1 grams IVPB at 200 ml/hr once over 30 mins; (mix in NS 100 mL) kj2 Route: IVPB; Rate: 200 ml/hr; Infused Over: 30 mins; Site: left antecubital; 20:33 Follow up: IV Status: Completed infusion; IV Intake: 100ml kj2 20:32 Drug: morphine IVP or IV 4 mg IVP once over 4 mins Route: IVP; Infused Over: 4 mins; kj2 Site: left antecubital; 20:33 Follow up: Response: Medication Administered at Departure kj2 Disposition: 10/15 11:57 I was immediately available on-site in the Emergency Department for consultation in the ms3 care of the patient. Disposition Summary: 10/14/24 17:40 Transfer Ordered Notes: Transfer Location: [facility] cp Reason: Higher level of care cp Condition: Stable cp Problem: new cp Symptoms: have improved cp Accepting Physician: doctor(10/14/24 21:14) kj2 Diagnosis - Cellulitis of left lower limb cp Forms: - Medication Reconciliation Form cp - SBAR form cp Signatures: Dispatcher [employer] EDMS Tashi Edge PA PA cp Sims, Marcus, DO DO ms3 Rowena Machado RN RN kj2 Corrections: (The following items were deleted from the chart) 10/14 14:29 14:29 BLOOD CULTURE*+BA.LAB.BRZ ordered. EDMS EDMS 14: 14:29 CBC+H.LAB.BRZ ordered. EDMS EDMS 14:29 14:29 COMPREHENSIVE METABOLIC PANEL+C.LAB.BRZ ordered. EDMS EDMS 14:29 14:29 LACTATE+C.LAB.BRZ ordered. EDMS EDMS 14:29 14:29 PROTIME (+INR)+COAG.LAB.BRZ ordered. EDMS EDMS 14:29 14:29 PTT, ACTIVATED+COAG.LAB.BRZ ordered. EDMS EDMS 14:29 Urinalysis+U.LAB.BRZ ordered. EDMS EDMS 14: Troponin High Sensitivity+C.LAB.BRZ ordered. EDMS EDMS 14: SARS-COV-2 Antigen Rapid+I.LAB.BRZ ordered. EDMS EDMS 14:29 Respiratory Syncytial Virus Ag+BA.LAB.BRZ ordered. EDMS EDMS 14:29 Influenza Screen (A \T\ B)+BA.LAB.BRZ ordered. EDMS EDMS 14:29 Chest Single View+RAD.RAD.BRZ ordered. EDMS EDMS : 17:40 doctor cp kj2
--- NOTE | 2024-10-14 17:41 | ER ---
Nurse's Notes [facility] Name: Karlene Salgado Age: 63 yrs Sex: Female : 1960 Arrival Date: 10/14/2024 Time: 14:03 Bed 20 Private MD: Diagnosis: Cellulitis of left lower limb Presentation: 10/14 14:37 Chief complaint: Patient states: left foot pain and infection. Coronavirus screen: kj2 Client denies travel out of the [place] in the last 14 days. Ebola Screen: No symptoms or risks identified at this time. Initial Sepsis Screen: Does the patient meet any 2 criteria? No. Patient's initial sepsis screen is negative. Does the patient have a suspected source of infection? No. Patient's initial sepsis screen is negative. Risk Assessment: Do you want to hurt yourself or someone else? Patient reports no desire to harm self or others. Onset of symptoms was October 14, 2024. 14:37 Method Of Arrival: Ambulatory kj2 14:37 Acuity: JEREMIAH 3 kj2 Historical: - Allergies: 14:35 Hydrocodone-Acetaminophen; kj2 - Immunization history:: Adult Immunizations unknown. - Infectious Disease History:: Denies. - Social history:: Smoking status: unknown. Screenin:38 [facility] ED Fall Risk Assessment (Adult) History of falling in the last 3 months, kj2 including since admission No falls in past 3 months (0 pts) Confusion or Disorientation No (0 pts) Intoxicated or Sedated No (0 pts) Impaired Gait No (0 pts) Mobility Assist Device Used No (0 pt) Altered Elimination No (0 pt) Score/Fall Risk Level 0 - 2 = Low Risk Maintained a safe environment, Hourly rounding (assess needs \T\ fall precautionary measures) done. Abuse screen: Denies threats or abuse. Denies injuries from another. Nutritional screening: No deficits noted. Tuberculosis screening: No symptoms or risk factors identified. Assessment: 14:33 General: Appears in no apparent distress. uncomfortable, Behavior is calm, cooperative. kj2 Pain: Complains of pain in left foot Pain currently is 6 out of 10 on a pain scale. Neuro: Level of Consciousness is awake, alert, obeys commands, Oriented to person, place, time, situation. Cardiovascular: Patient's skin is warm and dry. Respiratory: Airway is patent Respiratory effort is unlabored. Respiratory: Parent/caregiver reports the patient having recent lung transplant. GI: No signs and/or symptoms were reported involving the gastrointestinal system. : No signs and/or symptoms were reported regarding the genitourinary system. 15:30 Reassessment: Patient appears in no apparent distress at this time. Patient and/or kj2 family updated on plan of care and expected duration. Pain level reassessed. Patient is alert, oriented x 3, equal unlabored respirations, skin warm/dry/pink. 16:26 Reassessment: Patient appears in no apparent distress at this time. Patient and/or kj2 family updated on plan of care and expected duration. Pain level reassessed. Patient is alert, oriented x 3, equal unlabored respirations, skin warm/dry/pink. 17:30 Reassessment: Patient appears in no apparent distress at this time. Patient and/or kj2 family updated on plan of care and expected duration. Pain level reassessed. Patient is alert, oriented x 3, equal unlabored respirations, skin warm/dry/pink. 20:44 Reassessment: Patient appears in no apparent distress at this time. Patient and/or kj2 family updated on plan of care and expected duration. Pain level reassessed. Patient is alert, oriented x 3, equal unlabored respirations, skin warm/dry/pink. Vital Signs: 14:35 BP 127 / 65; Pulse 87; Resp 20; Temp 98.7; Pulse Ox 98% on R/A; kj2 14:38 Weight 68.04 kg; Height 5 ft. 6 in. ; kj2 15:30 BP 125 / 65; Pulse 85; Resp 20; Pulse Ox 96% on R/A; kj2 16:27 BP 120 / 56; Pulse 80; Resp 20; Pulse Ox 95% on R/A; kj2 17:30 BP 123 / 68; Pulse 78; Resp 18; Pulse Ox 97% on R/A; kj2 18:30 BP 145 / 77; Pulse 82; Resp 18; Pulse Ox 100% ; kj2 19:30 BP 132 / 78; Pulse 76; Resp 18; Pulse Ox 100% on R/A; kj2 20:33 BP 128 / 74; Pulse 72; Resp 20; Temp 98.2; Pulse Ox 99% on R/A; kj2 14:38 Body Mass Index 24.21 (68.04 kg, 167.64 cm) kj2 ED Course: 14:05 Patient arrived in ED. mr 14:09 Tashi Edge PA is PHCP. cp 14:09 Ady Sexton DO is Attending Physician. cp 14:21 Arm band placed on Patient placed in an exam room, on a stretcher. ll1 14:32 Rowena Machado, DWAYNE is Primary Nurse. kj2 14:38 Triage completed. kj2 14:38 Patient has correct armband on for positive identification. Bed in low position. Call kj2 light in reach. Side rails up X 1. Adult w/ patient. Provided Education on: call light. 14:43 Chest Single View XRAY In Process Unspecified. EDMS 15:06 Missed attempt(s): 20 gauge in right antecubital area. kj2 15:10 Initial lab(s) drawn, by me, sent to lab. First set of blood cultures drawn. Second set ty of blood cultures drawn by me. 15:30 Blood Culture Adult (2) Sent. ty 15:30 CBC with Diff Sent. ty 15:30 CMP Sent. ty 15:30 Lactate w/ 2H reflex if indic. Sent. ty 15:30 Protime (+inr) Sent. ty 15:30 Ptt, Activated Sent. ty 15:30 Inserted saline lock: 22 gauge in left antecubital area, using aseptic technique. Blood ty collected. Flushed with 10 mL NS. 15:45 US Extremity Venous Unilateral Ltd In Process Unspecified. EDMS 15:45 Lower Extremity Artery Uni Ltd US In Process Unspecified. EDMS 16:18 XRAY Foot LEFT 3 View In Process Unspecified. EDMS 17:[address] [facility]. bd 18:44 pt accepted in transfer to [place] [id number] Marquez admin approval given by tony young rn. Administered Medications: 15:50 Drug: Ondansetron IVP 4 mg IVP once; over 2 minutes Route: IVP; Site: left antecubital; kj2 17:05 Follow up: Response: No adverse reaction kj2 15:55 Drug: NS 0.9% IV 500 ml 500 ml IV at 1 bolus once; to be given as a bolus over 30 kj2 minutes Volume: 500 ml; Route: IV; Rate: 1 bolus; Site: left antecubital; 17:05 Follow up: IV Status: Completed infusion; IV Intake: 500ml kj2 15:58 Drug: fentaNYL (PF) IVP 25 mcg IVP once Route: IVP; Site: left antecubital; kj2 17:06 Follow up: Response: No adverse reaction; Pain is decreased kj2 16:00 Drug: vancoMYCIN IVPB 1 grams IVPB once over 2 hrs Route: IVPB; Infused Over: 2 hrs; kj2 Site: left antecubital; 19:22 Drug: Cefepime IVPB 1 grams IVPB at 200 ml/hr once over 30 mins; (mix in NS 100 mL) kj2 Route: IVPB; Rate: 200 ml/hr; Infused Over: 30 mins; Site: left antecubital; 20:33 Follow up: IV Status: Completed infusion; IV Intake: 100ml kj2 20:32 Drug: morphine IVP or IV 4 mg IVP once over 4 mins Route: IVP; Infused Over: 4 mins; kj2 Site: left antecubital; 20:33 Follow up: Response: Medication Administered at Departure kj2 Medication: 14:39 VIS not applicable for this client. kj2 Intake: 17:05 IV: 500ml; Total: 500ml. kj2 20:33 IV: 100ml; Total: 600ml. kj2 Outcome: 17:40 ER care complete, transfer ordered by MD. baron 21:14 Patient left the ED. kj2 Signatures: Dispatcher [employer] EDMS Marsha Randolph, Jo, Reg Reg mr Tashi Edge PA PA cp Lewis, Lynsay, RN RN ll1 Juan Back Krystal, RN RN kj2
[2024-10-14] MEDS ORDERED: NA CHLORIDE 0.9% 100 ML ONE (19:15)
[2024-10-14] MEDS ORDERED: CEFEPIME 1 GM/VIAL ONE (19:15)
[2024-10-14] MEDS ORDERED: MORPHINE 4 MG/ML SYR ONE (20:15)
[2024-10-14 21:25] VITALS: BP 128/74; TEMP 98.2; O2SAT 99
[2024-10-14 23:49] LABS: Anisocytosis 1+; Blood Morphology Comment NOTED (NOT SEEN); Platelet Estimate ADEQ; White Blood Cell Scan OK (OK)
--- NOTE | 2024-10-15 12:11 | EKG ---
Test Date: 2024-10-14 Test Time: 18:14:38 Cam Specialist: JOSELYN MEASUREMENT RESULTS: Intervals: Rate: 82 AZ: 134 QRSD: 70 QT: 364 QTc: 425 Marissa: P: 16 AZ: 134 QRS: 78 T: 29 INTERPRETIVE STATEMENTS: Normal sinus rhythm Septal infarct, age undetermined Abnormal ECG Compared to ECG 02/29/2024 03:16:40 Myocardial infarct finding now present ST (T wave) deviation no longer present Possible ischemia no longer present Electronically Signed On 10-15-24 12:10:18 [employer] COUNSEL by Alex Calderon
== END 2024-10-14 21:14 | disposition short-term general hospital (02) ==
LOC: ER 14:03
DX: L03.116 Cellulitis of left lower limb (principal); Z11.52 Encounter for screening for COVID-19
CPT/HCPCS: 96365; 96361; 93005; 87040 ×2; 85025; 36415; 85610; 83605; 85730; 84484; 80053; 87807; 87804 ×2; 71045; 73630; 93926; 93971; 96375; 99284; 87811; J3010; J2405; J7050; J7040; J0692

== ENCOUNTER 2024-11-04 12:07 | Emergency (ER) | payer OTHER ==
[2024-11-04 12:39] LABS: Absolute Lymphocytes (CBC) 0.2 K/uL (0.7-4.9); Absolute Monocytes 0.1 K/uL (0.1-1.3); Absolute Neutrophil 6.2 K/uL (1.8-8.0); Basophils % 0.6 % (0-1.3); Eosinophils % 0.4 % (0-4.4); Hematocrit 28.1 % (36.0-45.0); Hemoglobin 9.3 g/dL (12.0-15.0); Lymphocytes % 3.1 % (15.3-44.8); MCH 32.9 pg (27.0-35.0); MCHC 32.9 g/dL (32.0-36.0); MPV 8.3 fL (7.6-11.3); Monocytes % 1.7 % (3.3-12.3); Neutrophils % 94.2 % (41.7-73.7); Platelets 168 thou/uL (152-406); RBC Red Blood Cell Count 2.81 M/uL (3.86-4.86); Red Cell Distribution Width 20.1 % (12.1-15.2)
[2024-11-04 12:44] LABS: PT Prothrombin Time 17.3 SECONDS (10.0-13.0); Protime INR 1.55
[2024-11-04 12:55] LABS: AST/SGOT 23 U/L (15-37); Albumin 2.7 g/dL (3.4-5.0); Albumin/Globulin Ratio 0.7 (1.1-1.8); Alkaline Phosphatase 273 U/L (45-117); BUN Blood Urea Nitrogen 32 mg/dL (7-18); Bicarbonate 28 mEq/L (21-32); Bilirubin Total 0.3 mg/dL (0.2-1.0); Globulin 3.8 g/dL (2.3-3.5); Glomerular Filtration Rate 40 ml/min (=/>90); Glucose Level 147 mg/dL (74-106); Magnesium 2.6 mg/dL (1.6-2.4); NT PRO-BNP 2440 pg/mL (<125); Protein, Total 6.5 g/dL (6.4-8.2); Sodium Level 139 mEq/L (136-145); Troponin High Sensitivity 9.3 pg/mL (<58.9)
[2024-11-04 13:09] LABS: ALT/SGPT < 14 U/L (13-56); Bilirubin Direct < 0.2 mg/dL (0-0.2); Bilirubin Indirect, Calculated 0.1 mg/dL (0.2-0.8)
--- NOTE | 2024-11-04 13:16 | RAD REPORT ---
EXAM: Chest Single View HISTORY: hypoxia COMPARISON: 10/14/2024 FINDINGS: LUNGS/PLEURA: Increasing hazy opacities in the lung bases bilaterally. Increased thickening at the ri ght minor fissure. Small effusions difficult to exclude. MEDIASTINUM: The mediastinal silhouette is within normal limits. CARDIAC: Mild cardiomegaly UPPER ABDOMEN: Surgical changes in the epigastrium. BONES: No acute abnormality. LINES/TUBES/OTHER: N/A IMPRESSION: Worsened aeration of the lungs probably due to developing pulmonary edema.
--- NOTE | 2024-11-04 13:18 | RAD REPORT ---
EXAMINATION: Hip Left 2 View CLINICAL INDICATION: Female, 63 years old. PAIN COMPARISON: No prior exam. FINDINGS: Limited assessment of the left hip due to body habitus and overlapping wires. Mild left acetabular de generative changes. No definite fracture identified. No dislocation. IMPRESSION: Limited by body habitus and overlapping wires. No displaced fracture identified. A subtle or nondispl aced fracture may not be apparent. If there is high clinical concern for fracture, consider CT.
[2024-11-04 13:35] LABS: Anisocytosis 1+; Band Neutrophils 1 % (0-1); Blood Morphology Comment NOTED (NOT SEEN); Differential Total Cells Count 100; Lymphocytes 3 % (15-42); Monocytes 3 % (0-10); Platelet Estimate ADEQ; Segmented Neutrophils 93 % (40-80)
--- NOTE | 2024-11-04 13:53 | EDPHYS ---
Physician Documentation [facility] Name: Karlene Salgado Age: 63 yrs Sex: Female : 1960 Arrival Date: 11/04/2024 Time: 12:07 Bed 3 Private MD: ED Physician Ady Sexton HPI: 11/04 12:12 This 63 yrs old Female presents to ER via Unassigned with complaints of hypoxia and ms3 hypotension. 12:12 63-year-old female with past medical history of COVID long presents to the emergency ms3 department via [facility] after they were called to her residence for hypotension and hypoxia. 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 Patient is typically on 2 L oxygen while sitting with oxygen saturation in the 90s and increases her oxygen to 4 L with exercise. Patient's notes patient was off oxygen 2 weeks ago. EMS states patient's oxygen saturation was 74% on 3 L on their arrival. Patient's also notes that patient had a controlled fall onto carpet today and is complaining of left hip pain.. 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 Client reports receiving the 2nd dose of the Covid vaccine. - Infectious Disease History:: Denies. - Social history:: Smoking status: Patient denies any tobacco usage or history of. ROS: 12:12 Constitutional: Negative for fever, and chills. Cardiovascular: Negative for chest ms3 pain, and palpitations. 12:12 Abdomen/GI: Negative for abdominal pain, nausea, vomiting, diarrhea, and constipation, Skin: Negative for injury, rash, and discoloration, 12:12 Respiratory: Positive for hypoxia, 12:12 MS/extremity: Positive for left hip pain, Exam: 12:12 Constitutional: This is a well developed, well nourished patient who is awake, alert, ms3 and in no acute distress. Cardiovascular: Regular rate and rhythm with a normal S1 and S2. No gallops, murmurs, or rubs. Normal PMI, no JVD. No pulse deficits. Respiratory: Lungs have equal breath sounds bilaterally, clear to auscultation and percussion. No rales, rhonchi or wheezes noted. No increased work of breathing, no retractions or nasal flaring. Abdomen/GI: Soft, non-tender, with normal bowel sounds. No distension or tympany. No guarding or rebound. No evidence of tenderness throughout. Skin: Warm, dry with normal turgor. Normal color with no rashes, no lesions, and no evidence of cellulitis. 12:46 ECG was reviewed by the Attending Physician. ms3 Vital Signs: 12:19 BP 61 / 53; Pulse 74; Resp 27; Temp 98.7; Pulse Ox 100% on 4 lpm NC; Weight 66.22 kg; ap3 Height 5 ft. 6 in. ; 12:24 BP 100 / 61; Pulse 74; ap3 13:34 BP 111 / 63; Pulse 106; Resp 24; Pulse Ox 99% on 3 lpm NC; Pain 0/10; ss 14:17 BP 140 / 84; Pulse 106; Resp 21; Pulse Ox 97% on R/A; Pain 0/10; ss 15:10 BP 137 / 86; Pulse 76; Resp 19; Pulse Ox 100% on 3 lpm NC; Pain 0/10; ss 12:19 Body Mass Index 23.56 (66.22 kg, 167.64 cm) ap3 13:34 Pain Scale: Adult ss 14:17 Pain Scale: Adult ss 15:10 Pain Scale: Adult ss MDM: 12:10 Medical Screening Exam initiated ms3 12:12 Differential diagnosis: Anemia CHF exacerbation, Myocardial Infarction pneumonia, Hip ms3 fx. 13:59 Data reviewed: vital signs, nurses notes, lab test result(s), EKG, radiologic studies, ms3 and as a result, I will transfer patient. 14:01 Counseling: I had a detailed discussion with the patient and/or guardian regarding the ms3 historical points, exam findings, and any diagnostic results supporting the discharge/admit diagnosis, lab results, radiology results, the need to transfer to another facility, [facility] does not immediately have the required specialist. ED course: Discussed case with Dr Garcia, Transplant team, at [facility] who recommends 40 mg IV Lasix. 14:22 Consideration of Admission/Observation Patient transferred. I considered the following ms3 discharge prescriptions or medication management in the emergency department Medications were administered in the Emergency Department. See MAR. Independent interpretation of the following test(s) in the Emergency Department EKG: See my EKG interpretation above. Historians other than the Patient: EMS[facility]. 11/04 12:11 Order name: Basic Metabolic Panel; Complete Time: 13:43 ms3 11/04 12:11 Order name: CBC with Diff; Complete Time: 13:43 ms3 11/04 12:11 Order name: LFT's; Complete Time: 13:43 ms3 11/04 12:11 Order name: Magnesium; Complete Time: 13:43 ms3 11/04 12:11 Order name: NT PRO-BNP; Complete Time: 13:43 ms3 11/04 12:11 Order name: PT-INR; Complete Time: 13:43 ms3 11/04 12:11 Order name: Troponin HS; Complete Time: 13:43 ms3 11/04 12:45 Order name: Manual Differential; Complete Time: 13:43 EDMS 11/04 12:11 Order name: CXR XRAY; Complete Time: 13:43 ms3 11/04 12:14 Order name: Hip Left 2 View XRAY; Complete Time: 13:43 ms3 11/04 12:11 Order name: EKG; Complete Time: 12:12 ms3 11/04 12:11 Order name: Cardiac monitoring; Complete Time: 12:19 ms3 11/04 12:11 Order name: EKG - Nurse/Tech; Complete Time: 12:47 ms3 11/04 12:11 Order name: IV Saline Lock; Complete Time: 12:24 ms3 11/04 12:11 Order name: Labs collected and sent; Complete Time: 12:24 ms3 11/04 12:11 Order name: O2 Per Protocol; Complete Time: 12:19 ms3 11/04 12:11 Order name: O2 Sat Monitoring; Complete Time: 12:19 ms3 EC:46 Rate is 69 beats/min. Rhythm is regular. QRS [place] is Normal. QRS interval is normal. QT ms3 interval is normal. Clinical impression: NSR w/ Non-specific ST/T Changes. Interpreted by me. Reviewed by me. Administered Medications: 14:17 Drug: Furosemide IVP 40 mg IVP once; give over 2 minutes Route: IVP; Site: left upper ss arm; 15:10 Follow up: Response: No adverse reaction ss Disposition Summary: 11/04/24 13:53 Transfer Ordered Notes: Transfer Location: [facility] ms3 Reason: Higher level of care ms3 Condition: Stable ms3 Problem: new ms3 Symptoms: are unchanged ms3 Accepting Physician: Dr Rutledge(11/04/24 16:38) kate Diagnosis - Acute pulmonary edema ms3 - Hypoxia ms3 Forms: - Medication Reconciliation Form ms3 - SBAR form ms3 Signatures: Dispatcher [employer] EDAngeline Goodman RN RN ss Joseline Joshua RN RN ap3 Ady Sexton DO DO ms3 Corrections: (The following items were deleted from the chart) 12:29 12:28 Allergies: Hydrocodone-Acetaminophen; ap3 ap3 14:22 13:53 Dr sanchez ms3 16:38 14:22 Dr Rutledge ms3 ss
--- NOTE | 2024-11-04 13:53 | ER ---
Nurse's Notes [facility] Name: Karlene Salgado Age: 63 yrs Sex: Female : 1960 Arrival Date: 11/04/2024 Time: 12:07 Bed 3 Private MD: Diagnosis: Acute pulmonary edema;Hypoxia Presentation: 11/04 12:19 Coronavirus screen: At this time, the client does not indicate any symptoms associated ap3 with coronavirus-19. Ebola Screen: No symptoms or risks identified at this time. Initial Sepsis Screen: Does the patient meet any 2 criteria?. Risk Assessment: Do you want to hurt yourself or someone else? Patient reports no desire to harm self or others. Onset of symptoms was November 04, 2024. 12:19 Acuity: JEREMIAH 2 ap3 12:19 Method Of Arrival: [facility] ap3 12:24 Initial Sepsis Screen: Does the patient meet any 2 criteria? RR > 20 per min. Systolic ap3 BP < 90 mmHg. 12:25 Chief complaint: Patient states: she started cymbalts and taking double her gabapentin ap3 yesterday. patient reports she started getting dizzy yesterday afternoon. patient states that today she was sitting on her bed and she started falling back and grabbed the side board and had a "controlled fall". patients family checked on her, and reports that the patients blood pressure and oxygen levels were low. patient wears home oxygen, and is a double lung transplant patient from May 2024 EMS states: the patient's SpO2 was 70% on 3 liters at the time of their arrival. EMS reported the patient recovered when they placed her on 4 liters. Initial Sepsis Screen: Does the patient have a suspected source of infection? No. Patient's initial sepsis screen is negative. Care prior to arrival: Medication(s) given: Normal saline infusion, zofran 4 mg, IV initiated. 20 GA, in the left antecubital area. Triage Assessment: 12:29 General: Appears uncomfortable, Behavior is calm, cooperative, appropriate for age. ap3 Pain: Complains of pain in back, buttocks, right arm and right leg Pain currently is 0 out of 10 on a pain scale. at worst was 8 out of 10 on a pain scale. Aggravated by increased activity, repositioning. Neuro: Level of Consciousness is awake, alert, obeys commands, Oriented to person, place, time, situation, Appropriate for age. Cardiovascular: Patient's skin is warm and dry. Respiratory: Airway is patent Respiratory effort is even, unlabored. 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 Client reports receiving the 2nd dose of the Covid vaccine. - Infectious Disease History:: Denies. - Social history:: Smoking status: Patient denies any tobacco usage or history of. Screenin:31 Abuse screen: Denies threats or abuse. Nutritional screening: No deficits noted. ap3 Tuberculosis screening: No symptoms or risk factors identified. Assessment: 12:40 General: Appears in no apparent distress. Behavior is calm, cooperative, Denies fever. ss Neuro: Level of Consciousness is awake, alert, obeys commands, Oriented to person, place, time, situation. Respiratory: Airway is patent Respiratory effort is even, unlabored, Respiratory pattern is regular, symmetrical. GI: Patient currently denies diarrhea, nausea, vomiting. : No signs and/or symptoms were reported regarding the genitourinary system. purewick placed at this time, to suction. EENT: Nares are clear. Derm: Skin Healing skin tear noted to R arm and L forearm. Pt reports she has been having a wound healing nurse come to her home for dressing changes. Skin is pink, warm \\T\\ dry. normal. 12:47 Reassessment: XRAY at bedside at this time. ss 15:57 Reassessment: Report given to DWAYNE Veronica at [facility]. ss Vital Signs: 12:19 BP 61 / 53; Pulse 74; Resp 27; Temp 98.7; Pulse Ox 100% on 4 lpm NC; Weight 66.22 kg; ap3 Height 5 ft. 6 in. ; 12:24 BP 100 / 61; Pulse 74; ap3 13:34 BP 111 / 63; Pulse 106; Resp 24; Pulse Ox 99% on 3 lpm NC; Pain 0/10; ss 14:17 BP 140 / 84; Pulse 106; Resp 21; Pulse Ox 97% on R/A; Pain 0/10; ss 15:10 BP 137 / 86; Pulse 76; Resp 19; Pulse Ox 100% on 3 lpm NC; Pain 0/10; ss 12:19 Body Mass Index 23.56 (66.22 kg, 167.64 cm) ap3 13:34 Pain Scale: Adult ss 14:17 Pain Scale: Adult ss 15:10 Pain Scale: Adult ss ED Course: 12:10 Patient arrived in ED. ms3 12:10 Ady Sexton DO is Attending Physician. ms3 12:20 Triage completed. ap3 12:23 Initial lab(s) drawn, by me, sent to lab. Inserted saline lock: 22 gauge in left upper aa5 arm, using aseptic technique. Blood collected. Flushed with 10 mL NS. 12:31 Arm band placed on right wrist. ap3 12:48 EKG done, by ED staff, reviewed by Ady Sexton DO. ap3 13:06 Angeline Smith, DWAYNE is Primary Nurse. ss 13:13 CXR XRAY In Process Unspecified. EDMS 13:13 Hip Left 2 View XRAY In Process Unspecified. EDMS 13:52 initiated transfer to [facility]. bd 15:50 pt accepted in transfer to [facility] rm [id number] Shukla admin approval given by hector Davis. 16:38 No provider procedures requiring assistance completed. Patient transferred, IV remains ss in place. Administered Medications: 14:17 Drug: Furosemide IVP 40 mg IVP once; give over 2 minutes Route: IVP; Site: left upper ss arm; 15:10 Follow up: Response: No adverse reaction ss Medication: 12:47 VIS not applicable for this client. ss Outcome: 13:53 ER care complete, transfer ordered by MD. ms3 16:38 Transferred by ground EMS to [facility], Transfer form completed. ss X-rays sent w/ patient. 16:38 Condition: improved 16:38 Instructed on the need for transfer, Demonstrated understanding of instructions, 16:38 Patient left the ED. ss Signatures: Dispatcher [employer] EDMS Marsha Randolph Audri RN RN aa5 Angeline Smith RN RN ss Joseline Joshua RN RN ap3 Ady Sexton DO DO ms3 Corrections: (The following items were deleted from the chart) 12:29 12:28 Allergies: Hydrocodone-Acetaminophen; ap3 ap3 12:31 12:25 Chief complaint: Patient states: she started cymbalts and taking double her ap3 gabapentin yesterday. patient reports she started getting dizzy yesterday afternoon. patient states that today she was sitting on her bed and she started falling back and grabbed the side board and had a "controlled fall". patients family checked on her, and reports that the patients blood pressure and oxygen levels were low. patient wears home oxygen, and is a double lung transplant patient from May 2024 ap3 14:17 13:34 BP 111 / 63; Pulse 106bpm; Resp 24bpm; Pulse Ox 99% RA; Pain 0/10, Adult; ss ss 15:04 12:40 Derm: Skin is intact, is healthy with good turgor, Skin is pink, warm \\T\\ dry. ss normal, ss
[2024-11-04] MEDS ORDERED: FUROSEMIDE 40 MG/4 ML VIAL ONE (14:09)
[2024-11-04 16:52] VITALS: TEMP 98.7
[2024-11-04 16:59] VITALS: BP 137/86; O2SAT 100
== END 2024-11-04 16:38 | disposition short-term general hospital (02) ==
LOC: ER 12:07
DX: J81.0 Acute pulmonary edema (principal); Z99.81 Dependence on supplemental oxygen; Z94.2 Lung transplant status; M25.552 Pain in left hip; Z86.16 Personal history of COVID-19
CPT/HCPCS: 93005; 85025; 80048; 36415; 83735; 85610; 80076; 84484; 83880; 71045; 73502; 96374; 99285; J1940